=== PATIENT | female | born 1990 | race Caucasian/White ===

== ENCOUNTER 2023-10-01 13:43 | Outpatient (CLI) | payer OTHER, SELFPAY ==
[2023-10-01 11:14] LABS: HCG Quant, Pregnancy 20589 mIU/mL (1-3)
== END 2023-10-01 13:44 | disposition home or self-care (01) ==
LOC: LBO 13:45
PROVIDERS: Visit Provider Advanced Practice Midwife
DX: O20.0 Threatened abortion (principal)
CPT/HCPCS: 36415; 86850; 86900; 86901; 84702

== ENCOUNTER 2023-11-03 05:14 | Outpatient (CLI) | payer OTHER, SELFPAY ==
[2023-11-03 11:30] LABS: Panorama Kit Sent via Fed Ex
[2023-11-03 11:37] LABS: Abs Immature Grans 0.03 10^3/uL (0.0-0.06); Absolute Basophil Count 0.04 10^3/uL (0.0-0.2); Absolute Eosinophil Count 0.07 10^3/uL (0.0-0.7); Absolute Lymphocyte Count 2.02 10^3/uL (1.2-3.4); Absolute Monocyte Count 0.43 10^3/uL (0.1-0.8); Absolute Neutrophil Count 6.26 10^3/uL (1.2-6.7); Basophils % 0.5; Eosinophils % 0.8; HCT 38.7 % (36.0-46.0); HGB 13.3 g/dL (11.2-15.7); Immature Grans % 0.3; Lymphocytes % 22.8; MCH 32.1 pg (27.0-33.0); MCHC 34.4 % (32.0-36.0); MCV 94 fL (80-95); MPV 10.1 fL (8.0-11.0); Monocytes % 4.9; Neutrophils % 70.7; Platelet Count 263 10^3/uL (130-400); RBC 4.14 10^6/uL (3.93-5.22); RDW 11.9 % (11.7-14.6); RDW-SD 40.9 fL; WBC 8.85 10^3/uL (4.4-10.8)
[2023-11-03 11:49] LABS: Glucose,1 Hr (Glucola) 88 mg/dL (80-140)
[2023-11-03 19:06] LABS: Hepatitis B Surface Ag Negative (Negative)
[2023-11-03 19:35] LABS: HIV-1/2 Ag & Ab Screen Negative (Negative)
[2023-11-03 19:36] LABS: Hepatitis C Ab w Rflx HCV PCR Negative (Negative)
[2023-11-04 11:22] LABS: Rubella IgG Ab (UVM) Positive (See Note)
[2023-11-04 12:27] LABS: Varicella IgG Antibody Equivocal (See Note)
[2023-11-05 19:44] LABS: Syphilis IgG w/Reflex Nonreactive (Nonreactive)
[2023-11-07 18:20] LABS: Specimen WB Whole Blood
[2023-11-15 18:02] LABS: Result Summary NEGATIVE; Specimen WB Whole Blood
== END 2023-11-03 05:15 | disposition home or self-care (01) ==
LOC: LBO 05:14
PROVIDERS: Advanced Practice Midwife; Visit Provider Advanced Practice Midwife
DX: Z34.91 Encounter for supervision of normal pregnancy, unspecified, first trimester (principal)
CPT/HCPCS: 36415; 81220; 81222; 81329; 82950; 86787; 86803; 86850; 86900; 86901; 87340; 87389; 85025; 86762; 86780

== ENCOUNTER 2023-11-03 11:01 | Outpatient (REF) | payer OTHER, SELFPAY ==
[2023-11-04 13:38] LABS: Chlamydia Result Negative (Negative); GC Result Negative (Negative)
== END 2023-11-03 11:02 | disposition home or self-care (01) ==
LOC: LBN 11:01
PROVIDERS: Visit Provider Advanced Practice Midwife
DX: Z34.91 Encounter for supervision of normal pregnancy, unspecified, first trimester (principal)
CPT/HCPCS: 87491; 87591; 87086; 87480; 87510; 87660

== ENCOUNTER 2024-03-07 02:59 | Outpatient (CLI) | payer OTHER, SELFPAY ==
[2024-03-07 11:45] LABS: HCT 37.6 % (36.0-46.0); HGB 12.5 g/dL (11.2-15.7); MCH 32.8 pg (27.0-33.0); MCHC 33.2 % (32.0-36.0); MCV 99 fL (80-95); MPV 10.4 fL (8.0-11.0); Platelet Count 275 10^3/uL (130-400); RBC 3.81 10^6/uL (3.93-5.22); RDW-SD 46.6 fL; WBC 10.52 10^3/uL (4.4-10.8)
[2024-03-07 11:58] LABS: Glucose,1 Hr (Glucola) 110 mg/dL (80-140)
== END 2024-03-07 03:00 | disposition home or self-care (01) ==
LOC: LBO 02:59
PROVIDERS: Visit Provider Advanced Practice Midwife
DX: Z34.93 Encounter for supervision of normal pregnancy, unspecified, third trimester (principal)
CPT/HCPCS: 36415; 82950; 85027

== ENCOUNTER 2024-04-06 02:20 | Outpatient (CLI) | payer OTHER, SELFPAY ==
--- NOTE | 2024-04-06 07:11 | DI.US_ITS ---
Exam(s) US OB MING WEIGHT EXAM: US OB MING WEIGHT CLINICAL HISTORY: Advanced maternal age,z34.90. TECHNIQUE: Transabdominal obstetrical ultrasound performed. COMPARISON: US US OB 1ST TRIMESTER from 10/04/2023 US US ABDOMEN RENAL from 01/26/2024 FINDINGS: Number of fetuses: 1 position: CEPHALIC Placental location: There is a grade 2 posterior and fundal placenta. No evidence of previa. Uterus: Note is made of a 3.3 x 2.3 x 3.7 cm anterior uterine fibroid. BIOMETRIC DATA: BPD: 8.6cm, 34weeks 5days HC: 31.33cm, 35weeks 1day AC: 30.8cm, 34weeks 5days FL: 6.44cm, 33weeks 2days EFW: 2,412.85g, 5lb 6.26oz, 85% Composite Age: 34weeks 3days ANGELO: 05/15/2024 Heart Rate: 144bpm Amniotic fluid index: 12.59cm. The largest pocket is 5.6 cm. IMPRESSION: 1. Single live intrauterine gestation as above. 2. Estimated weight is 2413gms. This is the 85th percentile. 3. Amniotic fluid index is 12.6 cm. The largest pocket is 5.6 cm. DATA REPOSITORY:
== END 2024-04-06 02:40 ==
LOC: DI 02:20
PROVIDERS: Visit Provider Advanced Practice Midwife
DX: Z3A.34 34 weeks gestation of pregnancy (principal); O09.513 Supervision of elderly primigravida, third trimester
CPT/HCPCS: 76816

== ENCOUNTER 2024-04-25 11:53 | Outpatient (CLI) | payer OTHER, SELFPAY ==
[2024-04-25 12:13] VITALS: BP 136/67; PULSE 76; TEMP 36.2
[2024-04-25 12:42] VITALS: BP 136/67; PULSE 76
[2024-04-25] MEDS: Normal Saline 10 ML VIAL IJ (13:30)
[2024-04-25] MEDS: Ondansetron 4 MG/2 ML VIAL 8 MG IVP (13:35)
[2024-04-25 14:31] VITALS: BP 138/83; PULSE 78
[2024-04-25 14:41] VITALS: BP 137/75; PULSE 82
--- NOTE | 2024-04-25 16:35 | W.OBNST ---
Date of service: 04/25/24 Time of Service: 16:35 NST Evaluation Reason for NST Reasons for Nonstress Test: DECREASED MOVEMENT and OTHER, SEE COMMENT Reason for NST Other: nausea and vomiting Gestational Age Gestational Age in Weeks and Days: 35 Weeks and 4Days Test and Monitor Explained Test/Monitor Explained: Test Explained, Monitor Explained and Patient Verbalized Understanding Vital Signs Blood Pressure: 136/67 Pulse: 76 Temperature: 97.2 F Urine Results Urine Protein: Negative Urine Ketones: Negative Urine Glucose: Negative Urine Blood: Negative NST Information Date on Monitor: 04/25/24 Time on Monitor: 12:40 Date off Monitor: 04/25/24 Time off Monitor: 13:30 Total Time on Monitor: 50 NST Interventions: PO Hydration and Meal Given Contraction Frequency: 0 NST Evaluation Patient States Movement: Present FHR Baseline: 145 Variability: Moderate 6-25 bpm Accelerations: 15x15 Decelerations: None NST Results: Reactive Note Ultrasound Done: N/A. NST Note Note: given 8 mg zofran IV discharged when tolerating oral intake NST Reviewed and Verified by: Ana Blackburn
[2024-04-25 16:36] VITALS: BP 136/67; PULSE 76; TEMP 36.2
== END 2024-04-25 14:23 ==
LOC: BCD 11:57 → OBS 12:02
PROVIDERS: Visit Provider Advanced Practice Midwife
DX: O36.8130 Decreased fetal movements, third trimester, not applicable or unspecified (principal); Z3A.35 35 weeks gestation of pregnancy
CPT/HCPCS: 59025; 96372; J2405

== ENCOUNTER 2024-04-28 13:23 | Outpatient (REF) | payer OTHER, SELFPAY | END 2024-04-28 13:24 | disposition home or self-care (01) | LOC: LBN 13:23 | PROVIDERS: Visit Provider Advanced Practice Midwife | DX: Z34.93 Encounter for supervision of normal pregnancy, unspecified, third trimester (principal) | CPT/HCPCS: 87081 ==

== ENCOUNTER 2024-05-30 09:48 | Outpatient (CLI) | payer OTHER, SELFPAY ==
[2024-05-30 10:41] VITALS: TEMP 36.6
--- NOTE | 2024-05-30 13:48 | W.OBNST ---
Date of service: 05/30/24 Time of Service: 13:48 NST Evaluation Reason for NST Reasons for Nonstress Test: OTHER, SEE COMMENT Reason for NST Other: well being after fall. Gestational Age Gestational Age in Weeks and Days: 40 Weeks and 4Days Test and Monitor Explained Test/Monitor Explained: Test Explained, Monitor Explained and Patient Verbalized Understanding Vital Signs Blood Pressure: 122/80 Pulse: 78 Temperature: 97.9 F NST Information Date on Monitor: 05/30/24 Time on Monitor: 10:45 Date off Monitor: 05/30/24 Time off Monitor: 11:20 Total Time on Monitor: 35 NST Interventions: PO Hydration NST Evaluation Patient States Movement: Present FHR Baseline: 135 Variability: Moderate 6-25 bpm Decelerations: None NST Results: Reactive NST Evaluation Baby B Ultrasound Done: N/A Note Ultrasound Done: N/A. NST Note Note: Saira fell while walking and landed on her hands and knees. She felt a pop in her right ankle and experienced pain. She is able to walk well with a limp and mod discomfort. The right lateral ankle is swollen and ice is applied. Reactive NST. IOL planned for tomorrow morning. She was advised to continue icing and to go to the ED for evaluation of her ankle. NST Reviewed and Verified by: Yolis Chapman
[2024-05-30 13:52] VITALS: TEMP 36.6
[2024-05-30 14:00] VITALS: BP 122/80; PULSE 78
== END 2024-05-30 11:41 | disposition other institution (70) ==
LOC: BCD 09:53 → OBS 10:40
PROVIDERS: Visit Provider Advanced Practice Midwife
DX: O9A.213 Injury, poisoning and certain other consequences of external causes complicating pregnancy, third trimester (principal); M25.571 Pain in right ankle and joints of right foot; Z36.89 Encounter for other specified antenatal screening; W01.0XXA Fall on same level from slipping, tripping and stumbling without subsequent striking against object, initial encounter
CPT/HCPCS: 59025

== ENCOUNTER 2024-05-30 11:34 | Emergency (ER) | payer OTHER, SELFPAY ==
[2024-05-30 11:40] VITALS: BP 122/80; PULSE 78; RESP 18; TEMP 36.8; O2SAT 99
--- OUTSIDE RECORDS SUMMARY | 2024-05-30 11:44 | XMS_ITS | Encounter Summary ---
Author Organization [facility] Address [facility] [place] [address] Care Team Providers Care Deputy City Clerk Name Role Phone [place] Tl Armendariz Primary Care Provider [phone] Reason for Visit * Consultation (Routine) - Authorized Specialty Diagnoses / Procedures Referred By Dinora luque Referred To Contact Obstetrics and Gynecology Diagnoses Uterine leiomyoma, unspecified location UTERINE FIBROID ADVANCED MATERNAL AGE (AMA) IN Yolis Chapman CNM [address] [place] [address] [place] [address] [facility] [address] [place] [address] Referral ID Status Reason Start Date Expiration Date Visits Requested Visits Authorized [id number] Authorized Consult, Test & Treat PCP Updated and/or Approved 11/04/2023 11/03/2024 6 6 Encounter Details Date Type Department Care Team (Late Contact Info) Description 01/03/2024 9:00 AM EDT Office Visit Obstetrics [place] [id number] Yohannes Davidson MD [facility] DR OBSTETRICS AND GYNECOLOGY [place], [place] [id number] Obesity affecting , antepartum, unspecified obesity type; Primigravida of advanced maternal age in second trimester Social History Tobacco Use Types Packs/Day Years Used Date Smoking Tobacco: Never Smokeless Tobacco: Never Tobacco Cessation:Counseling Given: Not Answered Alcohol Use Standard Drinks/Week Comments Not Currently 0 (1 standard drink = 0.6 oz pur e alcohol) Estimated Date of Delivery Comme nts Yes 05/26/2024 Sex and Gender Information Value Date Recorded Sex Assigned at Not on file Gender Identity Not on file Sexual Orientation Not on file documented as of this encounter Last Filed Vital Signs Vital Sign Reading Time Taken Comments Blood Pressure 124/68 01/03/2024 8:40 AM EDT Pulse - - Temperature - - Respiratory Rate - - Oxygen Saturation - - Inhaled Oxygen Concentration - - Weight 92.6 kg (204 lb 3.2 oz) 01/03/2024 8:40 A M EDT Height - - Body Mass Index - - documented in this encounter Progress Notes * Yohannes Davidson MD - 01/03/2024 9:00 AM EDT Diagnosis/Maternal Medicine Consult Note Saira Mooney is a 33 y.o. year old female who is at 19w3d gestation. She is seen in consultation at the request of Yolis Chapman CNM for evaluation due to advanced maternal age. She previously opted for cell free DNA screening, which revealed a low risk of aneuploidy (<1:10,000 for trisomies 21, 18 and 13). She was returns today for ultrasound evaluation. Review of Systems Constitutional:feels well Movement: normal Contractions: none Leaking: None Bleeding: None now I reviewed the patient's medical, surgical and family history and updated it as appropriate. I alsoreviewed and updated as appropriate her allergies and medications. I reviewed her record and ultrasound reports to date. Ultrasound Date: 01/03/2024 Amniotic fluid volume normal Presentation cephalic Placenta posterior Growth appropriate for gestational age anatomy appears within normal limits. Physical Exam BP 124/68 Wt 92.6 kg (204 lb 3.2 oz) General: alert, well appearing, in no apparent distress, oriented to person, place and time, overweight HEENT: normocephalic, atraumatic Abdomen: Soft, non-tender, gravid Neurologic:alert, oriented, normal speech, no focal findings or movement disorder noted Psychiatric: Affect is Appropriate. Assessment and Recommendations: 33 y.o. year old female at 19w3d weeks gestation, referred for survey due to advance maternal age. Low risk NIPT and normal appearing survey. The patient declined further testing. After a normal ultrasound evaluation, obese women without diabetes may still have up to a 1% risk of amajor anomaly, including some anomalies not detectable by ultrasound. I appreciate the opportunity to be involved in this patients care, and am available if further questions should arise. Yohannes DAVIDSON MD 01/03/2024 Cc: Yolis Chapman, [id number] [place] [address] , with copy of ultrasound report 30 minutes were spent on date of visit, including non-face to face time. documented in this encounter Plan of Treatment Scheduled Referrals Name Type Priority Associated Diagnoses Orde r Schedule Referral to Maternal Medicine Outpatient Referral Routine Uterine leiomyoma, unspecified location Ordered: 11/04/2023 documented as of this encounter Visit Diagnoses Diagnosis Obesity affecting , antepartum, unspecified obesity type Primigravida of advanced maternal age in second trimester documented in this encounter Care Teams Deputy City Clerk Relationship Specialty Start Date End Date Tl Campo DO PCP - General 06/03/10 documented as of this encounter
--- OUTSIDE RECORDS SUMMARY | 2024-05-30 11:44 | XMS_ITS | Encounter Summary ---
[place] [address] Care Team Providers Care Glycerin Supervisor Name Role Phone [place] Tl Armendariz Primary Care Provider [phone] Reason for Referral * Consultation (Routine) - Authorized Specialty Diagnoses / Procedures Referred By Dinora luque Referred To Contact Obstetrics and Gynecology Diagnoses Uterine leiomyoma, unspecified location UTERINE FIBROID ADVANCED MATERNAL AGE (AMA) IN [facility] [address] [place] [address] [facility] Application Performance Engineer [address], [place] [address] Referral ID Status Reason Start Date Expiration Date Visits Requested Visits Authorized [id number] Authorized Consult, Test & Treat PCP Updated and/or Approved 11/04/2023 11/03/2024 6 6 Encounter Details Date Type Department Care Team (Late st Contact Info) Description 11/04/2023 Transcribe Orders eDH Incoming Referrals [phone] Yolis Chapman CNM [address] [place] [address] [address] [place] [place], [place] [id number] Uterine leiomyoma, unspecified location Social History Tobacco Use Types Packs/Day Years Used Date Smoking Tobacco: Never Assessed Sex and Gender Information Value Date Recorded Sex Assigned at Not on file Gender Identity Not on file Sexual Orientation Not on file documented as of this encounter Plan of Treatment Scheduled Referrals Name Type Priority Associated Diagnoses Orde r Schedule Referral to Maternal Medicine Outpatient Referral Routine Uterine leiomyoma, unspecified location Ordered: 11/04/2023 documented as of this encounter Visit Diagnoses Diagnosis Uterine leiomyoma, unspecified location documented in this encounter Care Teams Glycerin Supervisor Relationship Specialty Start Date End Date Tl Campo DO PCP - General 06/03/10 documented as of this encounter
--- OUTSIDE RECORDS SUMMARY | 2024-05-30 11:44 | XMS_ITS | Encounter Summary ---
[place] [address] Care Team Providers Care Plug Grower Name Role Phone lT Campo DO Primary Care Provider [phone] Encounter Details Date Type Department Care Team (Latest Contact Info) Description 01/03/2024 Travel Social History Tobacco Use Types Packs/Day Years Used Date Smoking Tobacco: Never Smokeless Tobacco: Never Alcohol Use Standard Drinks/Week Comments Not Currently 0 (1 standard drink = 0.6 oz pur e alcohol) Estimated Date of Delivery Comme nts Yes 05/26/2024 Sex and Gender Information Value Date Recorded Sex Assigned at Not on file Gender Identity Not on file Sexual Orientation Not on file documented as of this encounter Plan of Treatment Not on file documented as of this encounter Visit Diagnoses Not on filedocumented in this encounter Care Teams Plug Grower Relationship Specialty Start Date End Date Tl Campo DO PCP - General 06/03/10 documented as of this encounter
--- OUTSIDE RECORDS SUMMARY | 2024-05-30 11:44 | XMS_ITS | Clinical Summary ---
Author Organization [facility] [place] [address] Care Team Providers Care Applied Psychology Professor Name Role Phone Tl Campo DO Primary Care Provider [phone] Active Problems Problem Noted Date Diagnosed Date Obesity affecting , antepartum 01/03/20 Primigravida of advanced maternal age in second trimester 01/03/2024 Estimated Date of Delivery Comme nts Yes 05/26/2024 Social History Tobacco Use Types Packs/Day Years [...] on file Sexual Orientation Not on file Last Filed Vital Signs Vital Sign Reading Time Taken Comments Blood Pressure 124/68 01/03/2024 8:40 AM EDT Pulse - - Temperature - - Respiratory Rate - - Oxygen Saturation - - Inhaled Oxygen Concentration - - Weight 92.6 kg (204 lb 3.2 oz) 01/03/2024 8:40 A M EDT Height - - Body Mass Index - - Plan of Treatment Health Maintenance Due Date Last Done Comments HIV screen 2006 Hepatitis C Screening 2006 Hepatitis B vaccine (0-59 yrs) (1) 2007 Tetanus/Diphtheria/Pertussis Vaccines (1 - Tdap) 07/22 HPV test 2018 PAP Smear 2018 Covid-19 Vaccine (1 - 2023-25 season) 2024 Influenza (Flu) vaccine (1 o f 1 - Influenza standard series) 03/12/2024 RSV Vaccine (No Doses Required) Completed Care Teams Applied Psychology Professor Relationship Specialty Start Date End Date Tl Campo DO PCP - General 06/03/10
--- OUTSIDE RECORDS SUMMARY | 2024-05-30 11:44 | XMS_ITS | Encounter Summary ---
Author Organization [facility] [place] [address] Care Team Providers Care Mobile Ui Designer Name Role Phone Alber Tl Marcello PRIETO Primary Care Provider [phone] Reason for Referral * Diagnostic Test (Routine) - Closed Specialty Diagnoses / Procedures Referred By Contac t Referred To Contact Radiology Diagnoses Elderly primigravida, delivered Procedures US OB Detailed Morphology Ernesto Chapman CNM [address] [place] [address] [address] [place] [address] [facility] [place] [address] Referral ID Status Reason Start Date Expiration Date V isits Requested Visits Authorized [id number] Closed Specialty Service Requested 11/04/2023 05/05/2025 1 1 Reason for Visit * Diagnostic Test (Routine) - Closed Specialty Diagnoses / Procedures Referred By Contac t Referred To Contact Radiology Diagnoses Elderly primigravida, delivered Procedures US OB Detailed Morphology Ernesto Chapman CNM [address] [place] [address] [address] [place] [address] [facility] [place] [address] Referral ID Status Reason Start Date Expiration Date V isits Requested Visits Authorized [id number] Closed Specialty Service Requested 11/04/2023 05/05/2025 1 1 Encounter Details Date Type Department Care Team (Latest Contact Info) Description 01/03/2024 7:44 AM EDT - 01/03/2024 11:59 PM EDT Hospital [place] [address] Ernesto Chapman CNM [address] [place] [address] [address] [place] [address] Elderly primigravida, delivered Discharge Disposition: Home Social History Tobacco Use Types Packs/Day Years [...] on file documented as of this encounter Procedures Procedure Name Priority Date/Time Associated Diagnosis Comments US OB DETAILED MORPHOLOGY Routine 01/03/2024 8:34 AM EDT Elderly primigravida, delivered documented in this encounter Results * US OB Detailed Morphology (01/03/2024 8:34 AM EDT) WORKSTATION ID [id number] [facility] Anatomical Region Laterality Modality Pelvis, Abdomen Ultrasound 01/03/2024 8:32 AM EDT Impressions 01/03/2024 8:44 AM EDT 2nd Trimester - Detailed Morphology - Summary Single intrauterine with a gestational age of 19w 3d based on LMP ??(08/20/23) Composite age based on the current ultrasound alone is 19w 6d. Current growth parameters are consistent with prior dating indicating normal growth. Amniotic fluid volume is subjectively normal. Detailed anatomic evaluation was performed and no structural abnormalities are noted. Thank you for letting us participate in the care of this patient. If you are a health care provider and have any questions regarding this report, please contact the number above. For patients who have questions, please contact the health rn transitional care that requested your imaging first. ? Susannah Davidson, Staff Physician Electronically Signed Final Report ?? 01/03/2024 08:44 am Narrative 01/03/2024 8:44 AM EDT OBSTETRICS REPORT ?(Signed Final 01/03/2024 08:44 am) PATIENT INFO: ID #: ? [id number] ?: ??[birth year] (33 yrs)(F) Name: ? SAIRA CANALES ? Visit Date: 01/03/2024 08:32 am PERFORMED BY: Performed By: ? Alfredo AHMADI, ??Willow Attending: ?Susannah Davidson MD Referred By: ?ERNESTO CHAPMAN Location: ? [place] SERVICE(S) PROVIDED: [facility] - Detailed Morphology - [id number] ? [id number] INDICATIONS: 19 weeks gestation of ?Z3A.19 maternal age VITAL SIGNS: Weight (lb): 210.0 Height: ?5'7 ? BMI: ? 32.89 EVALUATION: Num Of Fetuses: ? 1 Heart Rate(bpm): ??141 Cardiac Activity: ? Observed, normal rhythm Presentation: ? Cephalic Placenta: ? Posterior P. Cord Insertion: ?Within Normal Limits Amniotic Fluid MING FV: ?subjectively normal --------- BIOMETRY: --------- BPD: ?47.2 ??mm ? G.Age: ?? 20w 2d OFD: ?60.7 ??mm HC: ?170.8 ??mm ? G.Age: ?? 19w 5d AC: ?145.5 ??mm ? G.Age: ?? 19w 6d FL: ? 30.7 ??mm ? G.Age: ?? 19w 4d HUM: ?30.5 ??mm ? G.Age: ?? 20w 1d CER: ?19.9 ??mm ? G.Age: ?? 19w 0d NFT: ?3.16 ??mm LV: ?5.3 ??mm CM: ?3.4 ??mm CI: ?77.8 ??% ? 70 - 86 FL/HC: ? 18.0 ??% ? 16.1 - 18.3 HC/AC: ? 1.17 ?1.09 - 1.39 FL/BPD: ?65.0 ??% FL/AC: ? 21.1 ??% ? 20 - 24 Est. FW: ? 309 ??gm ?0 lb 11 oz OB HISTORY: : ?1 ? Term: ?? 0 GESTATIONAL AGE: LMP: ? 19w 3d ?Date: ??08/20/23 ? ANGELO: ?? 05/26/24 U/S Today: ? 19w 6d ?ANGELO: ?? 05/23/24 Best: ?19w 3d ?? Det. By: ??LMP ??(08/20/23) ?ANGELO: ?? 05/26/24 TARGETED ANATOMY: Central Nervous System Calvarium/Cranial V.: ??Within Normal Limits Intracranial Yuliana: ? Within Normal Limits Cavum: ? Within Normal Limits Parenchyma: ?Within Normal Limits Lateral Ventricles: ?Within Normal Limits Choroid Plexus: ?Within Normal Limits Cereb./Vermis: ? Within Normal Limits Cisterna Magna: ?Within Normal Limits Midline Falx: ?Within Normal Limits Spine Cervical: ?Visualized Thoracic: ?Visualized Lumbar: ?Visualized Sacral: ?Visualized Shape/Curvature: ? Visualized Head/Neck Face: ?Within Normal Limits Lips: ?Within Normal Limits Neck: ?Within Normal Limits Nuchal Fold: ? Within Normal Limits Nasal Bone: ?Present Profile: ? Visualized Orbits/Eyes: ? Visualized Mandible: ?Visualized Maxilla: ? Visualized Thorax Thoracic Contour: ?Within Normal Limits Lungs: ? Visualized 4 Chamber View: ?Within Normal Limits Cardiac Activity: ?Normal Rhythm Rt Outflow Tract: ?Visualized Lt Outflow Tract: ?Visualized Aortic Arch: ? Visualized Ductal Arch: ? Visualized SVC: ? Visualized Cardiac [place]: ?Visualized Diaphragm: ? Visualized 3 Vessel View: ? Visualized IVC: ? Visualized Abdomen Ventral Wall: ?Visualized Cord Insertion: ?Visualized Situs: ? Normal Stomach: ? Visualized Liver: ? Visualized Lt Kidney: ? Visualized Rt Kidney: ? Visualized Bladder: ? Visualized Bowel: ? Visualized Extremities Lt Humerus: ?Within Nomal Limits Rt Humerus: ?Within Normal Limits Lt Forearm: ?Within Normal Limits Rt Forearm: ?Within Normal Limits Lt Hand: ? Within Normal Limits Rt Hand: ? Within Normal Limits Lt Femur: ?Within Normal Limits Rt Femur: ?Within Normal Limits Lt Lower Leg: ?Within Normal Limits Rt Lower Leg: ?Within Normal Limits Lt Foot: ? Visualized Rt Foot: ? Visualized Other Umbilical Cord: ?3 vessel cord Genitalia: ? Normal CERVIX UTERUS ADNEXA: Right Ovary Size(cm) ? 3.0 ??x ?? 1.9 ?x ??0.9 ? Vol(ml): 2.7 Visualized Left Ovary Size(cm) ? 4.3 ??x ?? 2.2 ?x ??1.9 ? Vol(ml): 9.4 Visualized ------- MYOMAS: ------- Site ? L(cm) ? W(cm) ? D(cm) ? Location Anterior Left ?3.1 ? 3.3 ? 2.9 ? Subserosal Lateral Blood Flow ?RI ? PI ? Comments Procedure Note Ranjana Davidson MD - 01/03/2024 OBSTETRICS REPORT (Signed Final 01/03/2024 08:44 am) PATIENT INFO: ID #: [id number] : [birth year] (33 yrs)(F) Name: SAIRA CANALES Visit Date: 01/03/2024 08:32 am PERFORMED BY: Performed By: Willow Fuentes RDMS Attending: Susannah Davidson MD Referred By: ERNESTO CHAPMAN Location: [place] SERVICE(S) PROVIDED: [facility] - Detailed Morphology - [id number] INDICATIONS: 19 weeks gestation of Z3A.19 maternal age VITAL SIGNS: Weight (lb): 210.0 Height: 5'7 BMI: 32.89 EVALUATION: Num Of Fetuses: 1 Heart Rate(bpm): 141 Cardiac Activity: Observed, normal rhythm Presentation: Cephalic Placenta: Posterior P. Cord Insertion: Within Normal Limits Amniotic Fluid MING FV: subjectively normal --------- BIOMETRY: --------- BPD: 47.2 mm G.Age: 20w 2d OFD: 60.7 mm HC: 170.8 mm G.Age: 19w 5d AC: 145.5 mm G.Age: 19w 6d FL: 30.7 mm G.Age: 19w 4d HUM: 30.5 mm G.Age: 20w 1d CER: 19.9 mm G.Age: 19w 0d NFT: 3.16 mm LV: 5.3 mm CM: 3.4 mm CI: 77.8 % 70 - 86 FL/HC: 18.0 % 16.1 - 18.3 HC/AC: 1.17 1.09 - 1.39 FL/BPD: 65.0 % FL/AC: 21.1 % - 24 Est. FW: 309 gm 0 lb 11 oz OB HISTORY: : 1 Term: 0 GESTATIONAL AGE: LMP: 19w 3d Date: 08/20/23 ANGELO: 05/26/24 U/S Today: 6d ANGELO: 05/23/24 Best: w 3d Det. By: LMP (08/20/23) ANGELO: 05/26/24 TARGETED ANATOMY: Central Nervous System Calvarium/Cranial V.: Within Normal Limits Intracranial Yuliana: Within Normal Limits Cavum: Within Normal Limits Parenchyma: Within Normal Limits Lateral Ventricles: Within Normal Limits Choroid Plexus: Within Normal Limits Cereb./Vermis: Within Normal Limits Cisterna Magna: Within Normal Limits Midline Falx: Within Normal Limits Spine Cervical: Visualized Thoracic: Visualized Lumbar: Visualized Sacral: Visualized Shape/Curvature: Visualized Head/Neck Face: Within Normal Limits Lips: Within Normal Limits Neck: Within Normal Limits Nuchal Fold: Within Normal Limits Nasal Bone: Present Profile: Visualized Orbits/Eyes: Visualized Mandible: Visualized Maxilla: Visualized Thorax Thoracic Contour: Within Normal Limits Lungs: Visualized 4 Chamber View: Within Normal Limits Cardiac Activity: Normal Rhythm Rt Outflow Tract: Visualized Lt Outflow Tract: Visualized Aortic Arch: Visualized Ductal Arch: Visualized SVC: Visualized Cardiac [place]: Visualized Diaphragm: Visualized 3 Vessel View: Visualized IVC: Visualized Abdomen Ventral Wall: Visualized Cord Insertion: Visualized Situs: Normal Stomach: Visualized Liver: Visualized Lt Kidney: Visualized Rt Kidney: Visualized Bladder: Visualized Bowel: Visualized Extremities Lt Humerus: Within Nomal Limits Rt Humerus: Within Normal Limits Lt Forearm: Within Normal Limits Rt Forearm: Within Normal Limits Lt Hand: Within Normal Limits Rt Hand: Within Normal Limits Lt Femur: Within Normal Limits Rt Femur: Within Normal Limits Lt Lower Leg: Within Normal Limits Rt Lower Leg: Within Normal Limits Lt Foot: Visualized Rt Foot: Visualized Other Umbilical Cord: 3 vessel cord Genitalia: Normal CERVIX UTERUS ADNEXA: Right Ovary Size(cm) 3.0 x 1.9 x 0.9 Vol(ml): 2.7 Visualized Left Ovary Size(cm) 4.3 x 2.2 x 1.9 Vol(ml): 9.4 Visualized ------- MYOMAS: ------- Site L(cm) W(cm) D(cm) Location Anterior Left 3.1 3.3 2.9 Subserosal Lateral Blood Flow RI PI Comments IMPRESSION 2nd Trimester - Detailed Morphology - Summary Single intrauterine with a gestational age of 19w 3d based on LMP (08/20/23) Composite age based on the current ultrasound alone is 19w 6d. Current growth parameters are consistent with prior dating indicating normal growth. Amniotic fluid volume is subjectively normal. Detailed anatomic evaluation was performed and no structural abnormalities are noted. Thank you for letting us participate in the care of this patient. If you are a health care provider and have any questions regarding this report, please contact the number above. For patients who have questions, please contact the health rn transitional care that requested your imaging first. Susannah Davidson, Staff Physician Electronically Signed Final Report 01/03/2024 08:44 am Ernesto Chapmna CNM IMG US OB ORDERABLE S documented in this encounter Visit Diagnoses Diagnosis Elderly primigravida, delivered documented in this encounter Care Teams Mobile Ui Designer Relationship Specialty Start Date End Date Tl Campo DO PCP - General 06/03/10 documented as of this encounter
--- NOTE | 2024-05-30 12:13 | W.ED.GENAD ---
Discharge Plan Disposition Patient Disposition: Home Discharge Details Clinical Impression: Moderate right ankle sprain Primary Care Provider: Unknown,Unknown ED Provider: Wilmar Zhou Home Meds and New Rx's Prescriptions: Continued Unisom (doxylamine) 25 mg tablet 25 mg PO QHS PRN aspirin 81 mg tablet,delayed release (DR/EC) 81 mg PO DAILY pantoprazole [Protonix] 40 mg tablet,delayed release (DR/EC) 40 mg PO DAILY Qty: 30 4RF Classic 28 mg iron- 800 mcg tablet 1 tab PO DAILY docusate sodium [Colace] 100 mg capsule 100 mg PO BID PRN (Reason: constipation) Qty: 90 1RF Discharge Instructions Additional Instructions: You are seen in the emergency department for your ankle pain. Your x-ray showed no sign of any fracture. You are receiving a lace up brace which you should wear as needed for comfort. You may bear weight on your right lower extremity. Please elevate your right lower extremity today and ice for 20 minutes on 20 minutes off. Please return to the emergency department if you cannot feel your right foot or if you develop any vaginal bleeding. For your pain please take medications as follows: 1. Take acetaminophen (Tylenol), 1,000 mg (two 500 mg tabs) every 6 hours Discharge Data Discharge Date/Time-TO BE ENTERED AT DEPARTURE: 05/30/24 13:17 HPI General Date/Time Provider Initiated Documentation: 05/30/24 12:13. HPI Narrative: MDM This is an overall very well-appearing normothermic and not tachycardic 33-year-old female with right ankle swelling on x-ray negative for any fractures most consistent with left ankle sprain. No pain out of proportion to suggest necrotizing soft tissue infection. No proximal tibial tenderness to suggest Maisonneuve injury. No midfoot instability to suggest Lisfranc injury. No lateral foot tenderness to suggest Robles fracture. Foot warm well-perfused so I am not concerned for critical limb ischemia so I do not feel the patient requires a CT angiogram with runoff. No history of axial loading to suggest talar fracture. No significant erythema nor fevers to suggest septic joint. No signs of cellulitis or fluctuance to suggest abscess. Patient has been assessed and discharged by the obstetricians. She denies any vaginal bleeding so am I not suspicious for labor as patient is not having any abdominal contractions. We discussed that she should elevate her right ankle today and ice for 20 minutes on 20 minutes off. I also counseled her on acetaminophen dosing. We discussed that she should return to the emergency department if you develop worsening pain or swelling or could not feel her right foot. She was discharged with an empiric trial of expectant outpatient management. HPI This is a 29-year-old female arrived to the emergency department via private vehicle in setting of right ankle pain. Patient is 9 months and her due date was several days ago. She notes that she was walking this morning at approximately 8:30 AM when she twisted her right ankle. She fell but did not strike her head. She did not lose consciousness. She has not had vaginal bleeding and she has been seen by the obstetricians today who advised ED evaluation for her right ankle pain and swelling. She has had no surgical history to her right ankle. She was in her usual state of health earlier this morning. Exam General: Well-appearing in no acute distress speaking in complete sentences. Head: Normocephalic, atraumatic. Eye: Extraocular eye movements intact. No conjunctival injection. No scleral icterus. Ear, nose, mouth, throat: Grossly normal inspection. Normal voice, handling secretions normally. Neck: Trachea midline. Cardiovascular: Well-perfused distal extremities. Respiratory: Nonlabored respiration. Gastrointestinal: Nondistended abdomen. Gravid uterus. Musculoskeletal: Right lateral malleolus with marked swelling tenderness. No lacerations to right lower extremity. No ecchymoses. Right foot warm well-perfused with 2+ right DP and PT pulses. Cap refill less than 2 seconds in the right toes. 4-5 right foot strength dorsi and plantarflexion limited secondarily by pain. No midfoot instability. No right lateral foot tenderness. No right foot instability. No right talar tenderness. No proximal right tibial pain. No knee pain. Full range of motion right knee. Skin: Normal for age and race, grossly normal temperature and turgor. No acute rash. Neurologic: Alert and appropriate, no apparent acute deficits. GCS 15. Psychiatric: Mood and manner are appropriate. Grooming and personal hygiene are appropriate. Related Data Home Medications ?Medication ?Instructions ?Recorded ?Confirmed vits no.126-ferrous fum 1 tab PO DAILY 09/21/23 05/31/24 28 mg iron-folic acid 800 mcg tablet (Classic ) aspirin 81 mg tablet,delayed 81 mg PO DAILY 11/03/23 05/31/24 release doxylamine succinate 25 mg tablet 25 mg PO QHS PRN 11/03/23 05/31/24 (Unisom (doxylamine)) docusate sodium 100 mg capsule 100 mg PO BID PRN constipation #90 01/06/24 05/31/24 (Colace) caps pantoprazole 40 mg tablet,delayed 40 mg PO DAILY #30 tabs 01/11/24 05/31/24 release (Protonix) Previous Rx's ?Medication ?Instructions ?Recorded docusate sodium 100 mg capsule 100 mg PO BID PRN constipation #90 01/06/24 (Colace) caps pantoprazole 40 mg tablet,delayed 40 mg PO DAILY #30 tabs 01/11/24 release (Protonix) Allergies Allergy/AdvReac Type Severity Reaction Status Date / Time No Known Allergies Allergy Verified 05/25/24 13:31 General Stated Complaint: Orthopedic TAMIKO: 4 Course Vital Signs Vital signs: Vital Signs Temperature 36.8 C 05/30/24 11:40 Pulse 78 05/30/24 11:40 Respiratory Rate 18 05/30/24 11:40 Blood Pressure 122/80 05/30/24 11:40 Pulse Oximetry 99 05/30/24 11:40 Temperature 36.8 C 05/30/24 11:40 Temperature Source Temporal Artery Scan 05/30/24 11:40 Pulse 78 05/30/24 11:40 Respiratory Rate 18 05/30/24 11:40 Respiratory Effort Normal, Non-Labored 05/30/24 11:42 Blood Pressure 122/80 05/30/24 11:40 Blood Pressure Position Sitting 05/30/24 11:40 Pulse Oximetry 99 05/30/24 11:40 Oxygen Delivery Method Room Air 05/30/24 11:40 Oxygen Flow Rate 0 05/30/24 11:40 Pain Level 4 05/30/24 11:40 Medical Decision Making Quality:SDOH Health Related Social Needs: No Data to Display PFSH All Active Problems (Updated 05/30/24 @ 12:39 by Wilmar Zhou MD) Moderate right ankle sprain (Acute) COVID-19 affecting in second trimester (Acute) Hydronephrosis, right (Acute) Gallbladder calculus without cholecystitis and no obstruction (Acute) Right upper quadrant abdominal pain affecting (Acute) Maternal varicella, non-immune (Acute) Uterine fibroid (Acute) 3cm fibroid at fundus/right noted at 6 week US in 2023 Advanced maternal age (AMA) in (Acute) (Acute) Medical History (Updated 05/30/24 @ 12:39 by Wilmar Zhou MD) Congenital spondylolisthesis of lumbar region Nausea and vomiting during Miscarriage, threatened, early Missed menses Surgical History (Updated 11/03/23 @ 09:52 by Yolis Chapman CNM) [place] teeth extracted Family History (Updated 03/07/24 @ 10:58 by Yolis Chapman CNM) Father Hyperlipidemia Maternal Grandmother Alzheimer's dementia Gallbladder disease Maternal Aunt Breast cancer Maternal Grandfather Lung cancer Paternal Grandmother Lung cancer Gallbladder disease Maternal Aunt Alzheimer's dementia Social History Smoking/Tobacco Use Status: Never Smoking risk assessment performed?: Yes Alcohol Intake: never Substance use type: does not use Housing: apartment Do you feel safe at home: Yes Do you feel safe in your relationship?: Yes History History 1 Para 0 Hx # Term Pregnancies 0 Multiple births 0 Hx # Pregnancies 0 Ectopic pregnancies 0 AB induced 0 Hx Number of Living Children 0 AB spontaneous 0
--- NOTE | 2024-05-30 12:25 | DI.RAD_ITS ---
Exam(s) XR ANKLE RT COMPLETE EXAM: XR ANKLE RT COMPLETE CLINICAL HISTORY: ankle injury. TECHNIQUE: 2D digital imaging was performed. COMPARISON: No exams were available for comparison FINDINGS: 3 views There is prominent soft tissue swelling of the lateral aspect of the ankle but no evidence of acute f racture or widening the ankle mortise. Talar dome unremarkable. Malleoli unremarkable. Bone densit y normal. No osseous lesions. No osseous tarsal coalition. Visualized base of the 5th metatarsal a ppears intact. IMPRESSION: Lateral soft tissue swelling but no acute fractures evident. DATA REPOSITORY: RADIATION DOSE DELIVERED:
[2024-05-30] MEDS: Acetaminophen 500 MG TAB 1000 MG PO (13:13)
[2024-05-30 13:16] VITALS: BP 120/82; PULSE 78; RESP 18; TEMP 36.8; O2SAT 99
== END 2024-05-30 13:17 | disposition home or self-care (01) ==
PROVIDERS: Emergency Provider Emergency Medicine
DX: O26.893 Other specified pregnancy related conditions, third trimester (principal); S93.401A Sprain of unspecified ligament of right ankle, initial encounter; Z3A.36 36 weeks gestation of pregnancy; X50.1XXA Overexertion from prolonged static or awkward postures, initial encounter; Y93.01 Activity, walking, marching and hiking; Y92.89 Other specified places as the place of occurrence of the external cause
CPT/HCPCS: 99283; 73610

== ENCOUNTER 2024-05-31 10:11 | Inpatient (IN) | payer OTHER, SELFPAY ==
[2024-05-31] VITALS (10 sets, daily range): BP systolic 118–135; BP diastolic 60–88; PULSE 67–84; RESP 18–20; TEMP 36.5–36.7; O2SAT 97
[2024-05-31] MEDS: miSOPROStol 25 MCG TAB 50 MCG PO (11:00)
[2024-05-31 11:25] LABS: HGB 12.5 g/dL (11.2-15.7); MCH 33.2 pg (27.0-33.0); MCHC 33.8 % (32.0-36.0); MCV 98 fL (80-95); Platelet Count 223 10^3/uL (130-400); RBC 3.77 10^6/uL (3.93-5.22); WBC 10.59 10^3/uL (4.4-10.8)
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
--- NOTE | 2024-05-31 17:37 | W.PM.OBNL1 ---
Date of service: 05/31/24 Time of Service: 17:37 Informed Consent Informed Consent: Induction of Labor (risks and benefits of induction of labor including risk of ) Pelvic Exam Dilation: 0.5 Effacement (%): 25 station: -1 Cervix Position: posterior Consistency: soft Vaginal Exam Presentation: Cephalic Contractions Monitor Mode: External Contraction Frequency(min): every 3-5 Contraction Duration(sec): 50-60 Intensity: Mild/Moderate Fetus A Monitor: External (US) Heart Rate Baseline: 140 Presentation: Cephalic Variability: Moderate (6-25 BPM) Categories: Category I FHR Rhythm: Regular Accelerations: 15 X 15 Decelerations: None Assessment and Plan Assessment and plan (1) Encounter for induction of labor: Status: Acute Assessment and plan: I suggested cervical ripening balloon and Saira and her agree. That was inserted. Will continue to monitor contraction pattern and consider resuming misoprostol if contractions are spacing out. Objective Abnormal lab results 05/31/24 Range/Units 11:15 RBC 3.77 L (3.93-5.22) 10^6/uL MCV 98 H (80-95) fL MCH 33.2 H (27.0-33.0) pg Temp Pulse Resp BP Pulse Ox 97.7 F 67 20 135/60 97 05/31/24 17:33 05/31/24 17:33 05/31/24 17:33 05/31/24 17:33 05/31/24 10:46 Laboratory Results WBC 10.59 10^3/uL (4.4-10.8) 05/31/24 11:15 RBC 3.77 10^6/uL (3.93-5.22) L 05/31/24 11:15 Hgb 12.5 g/dL (11.2-15.7) 05/31/24 11:15 Hct 37.0 % (36.0-46.0) 05/31/24 11:15 MCV 98 fL (80-95) H 05/31/24 11:15 MCH 33.2 pg (27.0-33.0) H 05/31/24 11:15 MCHC 33.8 % (32.0-36.0) 05/31/24 11:15 RDW 13.0 % (11.7-14.6) 05/31/24 11:15 Plt Count 223 10^3/uL (130-400) 05/31/24 11:15 MPV 11.0 fL (8.0-11.0) 05/31/24 11:15 ABO/Rh O Positive 05/31/24 11:15 Antibody Screen NEGATIVE 05/31/24 11:15 Vital Signs Reviewed: Yes Subjective Patient Reports: No new Complaints Interval history since last seen: Saira is noticing painless tightening. Increased uterine irritability after misoprostol dose. Results Hemoglobin/Hematocrit: Hgb 12.5 g/dL (11.2-15.7) 05/31/24 11:15 Hct 37.0 % (36.0-46.0) 05/31/24 11:15 Abnormal Lab Findings: Abnormal Labs 05/31/24 11:15 RBC 3.77 L MCV 98 H MCH 33.2 H
[2024-05-31] MEDS: miSOPROStol 25 MCG TAB PO (21:58)
[2024-06-01] VITALS (80 sets, daily range): BP systolic 102–131; BP diastolic 55–84; PULSE 63–107; RESP 16–18; TEMP 36.8–37.4; O2SAT 94–100; BMI 35.0
[2024-06-01] MEDS: Zolpidem 5 MG TAB 10 MG PO (00:05)
[2024-06-01] MEDS: miSOPROStol 25 MCG TAB PO (04:29)
--- NOTE | 2024-06-01 09:35 | ANES.PREOP_ITS ---
General Info Date of Service Date Performed: 06/01/24 Height: 5 ft 6 in Weight: 98.43 kg Body Mass Index (BMI): 35.0 Meds Allergies and Home Medications Allergies Allergy/AdvReac Type Severity Reaction Status Date / Time No Known Allergies Allergy Verified 05/25/24 13:31 Home Medication ?Medication ?Instructions ?Recorded vits no.126-ferrous fum 1 tab PO DAILY 09/21/23 28 mg iron-folic acid 800 mcg tablet (Classic ) aspirin 81 mg tablet,delayed 81 mg PO DAILY 11/03/23 release doxylamine succinate 25 mg tablet 25 mg PO QHS PRN 11/03/23 (Unisom (doxylamine)) docusate sodium 100 mg capsule 100 mg PO BID PRN constipation #90 01/06/24 (Colace) caps pantoprazole 40 mg tablet,delayed 40 mg PO DAILY #30 tabs 01/11/24 release (Protonix) Current Visit Medications: Current Medications Generic Name Dose Route Start Last Admin Trade Name Freq PRN Reason Stop Dose Admin Ringer's Solution 1,000 mls @ 200 mls/hr 05/31/24 10:15 IV INFUSION JESUS MANUEL IV Miscellaneous Supplies 1 each 05/31/24 10:15 Iv Access IV DIRECTED JESUS MANUEL Misoprostol 25 mcg 05/31/24 22:00 06/01/24 04:29 Misoprostol 25 Mcg Tab PO 25 mcg Q4H JESUS MANUEL Administration Sodium Chloride 0 ml 05/31/24 10:11 Normal Saline Flush 10 Ml Syr IVP PRN PRN Sodium Chloride 0 ml 05/31/24 20:00 Normal Saline Flush 10 Ml Syr IVP BID JESUS MANUEL Sodium Chloride 0 ml 05/31/24 10:11 Normal Saline 10 Ml Vial IJ DIRECTED PRN Terbutaline Sulfate 0.25 mg 05/31/24 10:11 Terbutaline 1 Mg/Ml Vial SC PRN PRN PFSH Active Problems Active Problems: Problem Status Onset Code Encounter for induction of labor Acute Z34.90 Moderate right ankle sprain Acute S93.401A COVID-19 affecting in second trimester Acute O98.512, U07.1 Hydronephrosis, right Acute N13.30 Gallbladder calculus without cholecystitis and no obstruction Acute K80.20 Right upper quadrant abdominal pain affecting Acute O26.899, R10.11 Maternal varicella, non-immune Acute O09.899, Z28.39 Uterine fibroid Acute D25.9 Advanced maternal age (AMA) in Acute Acute Z34.90 Medical History Medical History (Updated 05/31/24 @ 11:49 by Yolis Chapman CNM) Congenital spondylolisthesis of lumbar region Nausea and vomiting during Miscarriage, threatened, early Missed menses Surgical History Surgical History (Updated 11/03/23 @ 09:52 by Yolis Chapman CNM) [place] teeth extracted Tobacco Smoking/Tobacco Use Status: Never Alcohol Alcohol Intake: never Substance Use Substance use type: does not use Prental History History 2 1 Para 0 Hx # Term Pregnancies 0 Multiple births 0 Hx # Pregnancies 0 Ectopic pregnancies 0 AB induced 0 Hx Number of Living Children 0 AB spontaneous 0 Vital Signs and Lab Results Vital Signs Most Recent Vital Signs in EMR: Most Recent Vital Signs Temp Pulse Resp BP Pulse Ox 37.1 C 82 18 128/58 L 97 06/01/24 09:10 06/01/24 09:10 06/01/24 09:10 06/01/24 09:10 06/01/24 09:10 Lab Results 05/31/24 11:15 Blood Type / Crossmatch: 2 Antibody Screen NEGATIVE 05/31/24 Complete Blood Count: 2 White Blood Count 10.59 10^3/uL (4.4-10.8) 05/31/24 11:15 Red Blood Count 3.77 10^6/uL (3.93-5.22) L 05/31/24 11:15 Hemoglobin 12.5 g/dL (11.2-15.7) 05/31/24 11:15 Hematocrit 37.0 % (36.0-46.0) 05/31/24 11:15 Platelet Count 223 10^3/uL (130-400) 05/31/24 11:15 Complete Metabolic Panel: 2 No Data to Display Liver Function Panel: 2 No Data to Display Coagulation Panel: 2 No Data to Display Cardiac Panel: 2 No Data to Display Arterial Blood Gas: 2 No Data to Display Venous Blood Gas: 2 No Data to Display Pancreas Panel: 2 No Data to Display Thyroid Panel: 2 No Data to Display Infectious Disease: 2 No Data to Display Blood Cultures: 2 No Data to Display Toxicology Panel: 2 No Data to Display Panel: 2 No Data to Display Anesthesia Assessment and Plan Anesthesia History Personal History: No History of Anesthesia Complications Family History: No Family History of Anesthesia Complications Exercise Tolerance Exercise Tolerance: Metabolic Equivalents>4 Cardiac & Pulmonary Exam Cardiac Exam: Normal S1/S2 Heart Sounds Pulmonary Exam: Clear Bilateral Breath Sounds Implantable Cardiac Device Does patient have a Pacemaker or an ICD?: No Airway Exam Known Difficult Airway: No Mallampati Class: 2 Mouth Opening: Normal (> 3cm) Thyromental Distance: Greater than 3 cm Neck Range of Motion: Full ROM Neck Circumference: Normal Teeth Condition: Normal Dentition ASA Classification ASA Score: ASA 2 Emergency Case?: No NPO Status NPO Status: Full Stomach Status Status: Confirmed Anesthesia Plan Resuscitation Status: Full Code Anesthesia Technique: Labor Epidural Airway Planned: Natural Airway Monitors Used: Standard Monitors
[2024-06-01] MEDS: Normal Saline Flush 10 ML SYR IVP (09:51)
[2024-06-01] MEDS: Lactated Ringers 250 ML 125 ML IV (10:49)
[2024-06-01] MEDS: FentaNYL/ROPIvacaine 2 mcg/ml and 0.1% 200 ML CADD Cassette EP (10:50)
--- NOTE | 2024-06-01 10:56 | W.PM.OBNL1 ---
Date of service: 06/01/24 Time of Service: 10:56 Informed Consent Informed Consent: Induction of Labor (risks and benefits of induction of labor including risk of ) Pelvic Exam Comments: exam deferred, membranes intact Contractions Monitor Mode: External Contraction Frequency(min): every 3-6 Contraction Duration(sec): 40-60 Intensity: Moderate Fetus A Monitor: External (US) Heart Rate Baseline: 140 Presentation: Cephalic Variability: Moderate (6-25 BPM) Categories: Category I FHR Rhythm: Regular Accelerations: 15 X 15 Decelerations: None Amniotic Membrane Status: Intact Assessment and Plan Assessment and plan (1) Encounter for induction of labor: Status: Acute Assessment and plan: comfort measures. Saira would like to try nitrous oxide and that was provided. Will examine cervix when appropriate. Objective Abnormal lab results 05/31/24 Range/Units 11:15 RBC 3.77 L (3.93-5.22) 10^6/uL MCV 98 H (80-95) fL MCH 33.2 H (27.0-33.0) pg Temp Pulse Resp BP Pulse Ox 98.8 F 86 18 118/72 98 06/01/24 09:10 06/01/24 10:53 06/01/24 09:10 06/01/24 10:51 06/01/24 10:53 Laboratory Results WBC 10.59 10^3/uL (4.4-10.8) 05/31/24 11:15 RBC 3.77 10^6/uL (3.93-5.22) L 05/31/24 11:15 Hgb 12.5 g/dL (11.2-15.7) 05/31/24 11:15 Hct 37.0 % (36.0-46.0) 05/31/24 11:15 MCV 98 fL (80-95) H 05/31/24 11:15 MCH 33.2 pg (27.0-33.0) H 05/31/24 11:15 MCHC 33.8 % (32.0-36.0) 05/31/24 11:15 RDW 13.0 % (11.7-14.6) 05/31/24 11:15 Plt Count 223 10^3/uL (130-400) 05/31/24 11:15 MPV 11.0 fL (8.0-11.0) 05/31/24 11:15 ABO/Rh O Positive 05/31/24 11:15 Antibody Screen NEGATIVE 05/31/24 11:15 Subjective Patient Reports: New Complaints Interval history since last seen: Saira reports stronger contractions and requests pain medication. Results Hemoglobin/Hematocrit: Hgb 12.5 g/dL (11.2-15.7) 05/31/24 11:15 Hct 37.0 % (36.0-46.0) 05/31/24 11:15 Abnormal Lab Findings: Abnormal Labs 05/31/24 11:15 RBC 3.77 L MCV 98 H MCH 33.2 H
--- NOTE | 2024-06-01 10:59 | W.PM.OBNL1 ---
Date of service: 06/01/24 Time of Service: 10:59 Informed Consent Informed Consent: Induction of Labor (risks and benefits of induction of labor including risk of ) Pelvic Exam Dilation: 2 station: -2 Cervix Position: posterior Consistency: soft Vaginal Exam Presentation: Cephalic Comments: exam deferred until after epidural. Contractions Monitor Mode: External Contraction Frequency(min): every 3-7 Contraction Duration(sec): 60 Intensity: Moderate/Strong Fetus A Monitor: External (US) Heart Rate Baseline: 140 Presentation: Vertex Variability: Moderate (6-25 BPM) Categories: Category I FHR Rhythm: Regular Accelerations: 15 X 15 Decelerations: None Amniotic Membrane Status: Intact Assessment and Plan Assessment and plan (1) Encounter for induction of labor: Status: Acute Assessment and plan: Epidural placed by Eder Tejada with excellent effect. Saira was encouraged to rest and pitocin was ordered to be started when staffing allows. Anticipate . Objective Abnormal lab results 05/31/24 Range/Units 11:15 RBC 3.77 L (3.93-5.22) 10^6/uL MCV 98 H (80-95) fL MCH 33.2 H (27.0-33.0) pg Temp Pulse Resp BP Pulse Ox 98.8 F 92 H 18 118/72 98 06/01/24 09:10 06/01/24 10:58 06/01/24 09:10 06/01/24 10:51 06/01/24 10:58 Laboratory Results WBC 10.59 10^3/uL (4.4-10.8) 05/31/24 11:15 RBC 3.77 10^6/uL (3.93-5.22) L 05/31/24 11:15 Hgb 12.5 g/dL (11.2-15.7) 05/31/24 11:15 Hct 37.0 % (36.0-46.0) 05/31/24 11:15 MCV 98 fL (80-95) H 05/31/24 11:15 MCH 33.2 pg (27.0-33.0) H 05/31/24 11:15 MCHC 33.8 % (32.0-36.0) 05/31/24 11:15 RDW 13.0 % (11.7-14.6) 05/31/24 11:15 Plt Count 223 10^3/uL (130-400) 05/31/24 11:15 MPV 11.0 fL (8.0-11.0) 05/31/24 11:15 ABO/Rh O Positive 05/31/24 11:15 Antibody Screen NEGATIVE 05/31/24 11:15 Subjective Patient Reports: No new Complaints Interval history since last seen: Saira did not receive relief from nitrous oxide and requested an epidural. I attempted cervical exam which Saira did not tolerate and I was unable to setermine dilation. Vertex is -2. exam deferred until after epidural placement. Results Hemoglobin/Hematocrit: Hgb 12.5 g/dL (11.2-15.7) 05/31/24 11:15 Hct 37.0 % (36.0-46.0) 05/31/24 11:15 Abnormal Lab Findings: Abnormal Labs 05/31/24 11:15 RBC 3.77 L MCV 98 H MCH 33.2 H
--- NOTE | 2024-06-01 11:15 | ANES.NEUR_ITS ---
Epidural/Spinal Catheter Date Performed: 06/01/24 Procedure Start: 10:05 Procedure Stop: 10:32 Requesting Provider: Yolis Chapman Procedure Location: Obstetrics Reason Performed: Labor Epidural Standard Monitors Applied: Blood Pressure, SpO2 and See EMR for corresponding vital signs Patient Position: Sitting Sedation Given (Indicate Dose Given): No Sedation given Patient Mental Status: Awake Sterility: Hand Hygiene, Surgical Cap, Surgical Mask, Sterile Gloves, Sterile Drape/Sheet and Chlorhexidine Procedure Location: L3-L4 Interspace Epidural Needle: Tuohy 18 Gauge Needle Length: 3.5 Inch Needle Approach: Midline Epidural Procedure: Skin Prepped, Sterile Drape Placed, 1% Lidocaine to skin and subcutaneous tissue with 25G needle, Tuohy Needle placed, DANNY to Saline Used, Epidural Catheter Placed, Negative Heme, Negative CSF Flow and Tuohy Needle Removed Catheter Placed?: Catheter Placed Test Dose (Indicate Dose Given): 3ml 1.5% Lidocaine with 1:200K Epinephrine Given and Negative Test Dose Loss of Resistance Depth (cm): 5 Catheter depth at skin (cm): 12 Dressing: [place] Dressing Placed, Mastisol Used and Dressing reinforced with Tape Epidural Pr ovider Bolus (Indicate Dose Given): Total bolus dose given in 3-5 ml divided doses and Total Ropivacaine 0.1% with Fentanyl 2mcg/ml Given from pump. (ml) Dose:: 5 mL Additives (Indicate Dose Given ): None Infusion Medication: Medication Infusion Began Medication Infusion: Ropivacaine 0.1% with Fentanyl 2mcg/ml Maintenance Infusion Rate (ml/hour): 10 PCEA Bolus Dose (ml): 5 Post Procedure Pain score (0-10): 0 Block Level: N/A Paresthesia: None Ultrasound: Not Used Number of Attempts (See previous attempts in note section): 1 Procedure Tolerated: No Complications and Patient tolerated well Procedure Outcome: Successful Procedure Comment:: Pt. tolerated this very well. After bolus given, pt. complained of being dizzy and flushed. BP recheck showed drop from 120 to 102 systolic. This feeling passed without intervention over the next few minutes. pt. comfortable only feeling pressure bilaterally. Educated on PCEA use as well as adverse effects to be aware of and all questions answered. Performed By: Vahe Christine Supervised By: Eder Tejada
[2024-06-01] MEDS: Oxytocin/Normal Saline 30 UNIT/500 ML BAG 2 UNITS IV (12:50)
[2024-06-01] MEDS: Lactated Ringers 1,000 ML 125 ML IV (14:00)
[2024-06-01] MEDS: Ondansetron 4 MG/2 ML VIAL IVP (15:37)
--- NOTE | 2024-06-01 17:21 | W.PM.OBNL1 ---
Date of service: 06/01/24 Time of Service: 17: Informed Consent Informed Consent: Induction of Labor (risks and benefits of induction of labor including risk of ) Pelvic Exam Dilation: 5 Effacement (%): 100 station: -1 Cervix Position: mid Consistency: soft Vaginal Exam Presentation: Cephalic Pooling: Positive Contractions Monitor Mode: External Contraction Frequency(min): every 3 min Contraction Duration(sec): 60 Intensity: Moderate/Strong Fetus A Monitor: External (US) Heart Rate Baseline: 150 Presentation: Cephalic Variability: Moderate (6-25 BPM) Categories: Category I FHR Rhythm: Regular Accelerations: 15 X 15 Decelerations: Variable Recurrence: Episodic Amniotic Membrane Status: Ruptured Rupture Method: Spontaneous Amniotic Fluid: Meconium Amount: mod Assessment and Plan Assessment and plan (1) Encounter for induction of labor: Status: Acute Assessment and plan: Will ree-assess for cervical change in 2 hours. Consider IUPC monitoring. Anticipate . Dr Lamas notified of patient's status and she viewed the heart rate tracing. Objective Temp Pulse Resp BP Pulse Ox 99.3 F 71 18 118/59 L 94 06/01/24 17:09 06/01/24 17:09 06/01/24 17:09 06/01/24 17:09 06/01/24 13:28 Laboratory Results WBC 10.59 10^3/uL (4.4-10.8) 05/31/24 11:15 RBC 3.77 10^6/uL (3.93-5.22) L 05/31/24 11:15 Hgb 12.5 g/dL (11.2-15.7) 05/31/24 11:15 Hct 37.0 % (36.0-46.0) 05/31/24 11:15 MCV 98 fL (80-95) H 05/31/24 11:15 MCH 33.2 pg (27.0-33.0) H 05/31/24 11:15 MCHC 33.8 % (32.0-36.0) 05/31/24 11:15 RDW 13.0 % (11.7-14.6) 05/31/24 11:15 Plt Count 223 10^3/uL (130-400) 05/31/24 11:15 MPV 11.0 fL (8.0-11.0) 05/31/24 11:15 ABO/Rh O Positive 05/31/24 11:15 Antibody Screen NEGATIVE 05/31/24 11:15 Subjective Patient Reports: New Complaints Interval history since last seen: Saira is not experiencing any pain with contractions. She was experiencing nausea and she vomited at 1528. She voided approximately 400 cc clear urine. SVE and she was 5 cms/-2 and 100% effaced. She was reexamined at 1644 and cervix and she was 5 cms and -1/ 100% effaced with a large bulging bag of water. SROM occurred with exam for a mod amount of moderate meconium stained fluid. Temp 37.3 Results Hemoglobin/Hematocrit: Hgb 12.5 g/dL (11.2-15.7) 05/31/24 11:15 Hct 37.0 % (36.0-46.0) 05/31/24 11:15 Abnormal Lab Findings: Abnormal Labs 05/31/24 11:15 RBC 3.77 L MCV 98 H MCH 33.2 H
--- NOTE | 2024-06-01 19:17 | PGE_ITS ---
Date of service: 06/01/24 Time of Service: 19:17 Informed Consent Informed Consent: Induction of Labor (risks and benefits of induction of labor including risk of ) Pelvic Exam Dilation: 5 Effacement (%): 100 (marked edema) station: -1 Cervix Position: posterior Consistency: soft Vaginal Exam Presentation: Cephalic Pooling: Positive Comments: bloody fluid noted Contractions Monitor Mode: Palpation Contraction Frequency(min): every 2-3 Contraction Duration(sec): 60 Intensity: Strong IUPC resting tone (mmHg): 15 IUPC peak pressure (mmHg): 80 IUPC [place] units: 200 Fetus A Monitor: External (US) Heart Rate Baseline: 160 Presentation: Vertex Variability: Moderate (6-25 BPM) Categories: Category II FHR Rhythm: Regular Accelerations: 15 X 15 Decelerations: Late and Variable Recurrence: Episodic Assessment Note: IUPC placed. IV bolus 500 cc. late decelerations noted, Pitocin discontinued at 1900. Dr. Lamas called and notified of heart rate pattern and lack of progress in labor.. Assessment and Plan Assessment and plan (1) Encounter for induction of labor: Status: Acute Assessment and plan: Will continue to observe pattern with pitocin off. Discussed possibility of section if indicated with Saira and Shiv. Will reexamine in 1 hour or earlier if indicated. Objective Temp Pulse Resp BP Pulse Ox 99.1 F 76 16 117/57 L 94 06/01/24 18:34 06/01/24 18:34 06/01/24 18:34 06/01/24 18:34 06/01/24 13:28 Laboratory Results WBC 10.59 10^3/uL (4.4-10.8) 05/31/24 11:15 RBC 3.77 10^6/uL (3.93-5.22) L 05/31/24 11:15 Hgb 12.5 g/dL (11.2-15.7) 05/31/24 11:15 Hct 37.0 % (36.0-46.0) 05/31/24 11:15 MCV 98 fL (80-95) H 05/31/24 11:15 MCH 33.2 pg (27.0-33.0) H 05/31/24 11:15 MCHC 33.8 % (32.0-36.0) 05/31/24 11:15 RDW 13.0 % (11.7-14.6) 05/31/24 11:15 Plt Count 223 10^3/uL (130-400) 05/31/24 11:15 MPV 11.0 fL (8.0-11.0) 05/31/24 11:15 ABO/Rh O Positive 05/31/24 11:15 Antibody Screen NEGATIVE 05/31/24 11:15 Vital Signs Reviewed: Yes Subjective Patient Reports: No new Complaints Interval history since last seen: Saira is resting comfortably. She is feeling pressure but denies pain. Results Hemoglobin/Hematocrit: Hgb 12.5 g/dL (11.2-15.7) 05/31/24 11:15 Hct 37.0 % (36.0-46.0) 05/31/24 11:15 Abnormal Lab Findings: Abnormal Labs 05/31/24 11:15 RBC 3.77 L MCV 98 H MCH 33.2 H
--- NOTE | 2024-06-01 20:25 | W.PM.OBNL1 ---
Date of service: 06/01/24 Time of Service: 08:15 Informed Consent Informed Consent: Induction of Labor (risks and benefits of induction of labor including risk of ) Pelvic Exam Dilation: 5 station: -1 Fetus A Heart Rate Baseline: 165 Presentation: Vertex Variability: Moderate (6-25 BPM) Categories: Category II Decelerations: Late (intermittent) and Variable (intermittent) Assessment and Plan Assessment and plan (1) Arrested active phase of labor: Status: Acute Assessment and plan: P0 @40.6wks with arrest of dilation at 5cm, Cat 2 FHT. We discussed the recommendation for a CS due to various concerns and she is agreeable to this. We reviewed the procedure and recovery as well as risks including infection, bleeding, pain and injury to nearby organs. All her questions were answered and consents signed. The appropriate people were notified. Objective Temp Pulse Resp BP Pulse Ox 99.0 F 76 16 117/57 L 94 06/01/24 19:49 06/01/24 18:34 06/01/24 18:34 06/01/24 18:34 06/01/24 13:28 Laboratory Results WBC 10.59 10^3/uL (4.4-10.8) 05/31/24 11:15 RBC 3.77 10^6/uL (3.93-5.22) L 05/31/24 11:15 Hgb 12.5 g/dL (11.2-15.7) 05/31/24 11:15 Hct 37.0 % (36.0-46.0) 05/31/24 11:15 MCV 98 fL (80-95) H 05/31/24 11:15 MCH 33.2 pg (27.0-33.0) H 05/31/24 11:15 MCHC 33.8 % (32.0-36.0) 05/31/24 11:15 RDW 13.0 % (11.7-14.6) 05/31/24 11:15 Plt Count 223 10^3/uL (130-400) 05/31/24 11:15 MPV 11.0 fL (8.0-11.0) 05/31/24 11:15 ABO/Rh O Positive 05/31/24 11:15 Antibody Screen NEGATIVE 05/31/24 11:15 Vital Signs Reviewed: Yes Subjective Interval history since last seen: Pt has been undergoing induction at 40.5wks for 2 days. She progressed into active labor on pitocin today, received an epidural and was found to be 5cm. She has remained 5cm for almost 5hrs, the cervix has become swollen and she has a Cat 2 FHT with periods of late decels and a baseline increased to 165. Results Hemoglobin/Hematocrit: Hgb 12.5 g/dL (11.2-15.7) 05/31/24 11:15 Hct 37.0 % (36.0-46.0) 05/31/24 11:15 Abnormal Lab Findings: Abnormal Labs 05/31/24 11:15 RBC 3.77 L MCV 98 H MCH 33.2 H
[2024-06-01] MEDS: AZITHROMYCIN 500 MG in Normal Saline 250 ML 250 MG IVPB (20:47)
--- NOTE | 2024-06-01 21:40 | PLAC_PTH ---
PATIENT: Saira Mooney LOC: OBS U#:[id number] AGE/SX: 33/F ROOM: OBS.301 RE05/31/[address]: Yolis Chapman : 1990 BED: A DIS: 06/03/2024 SPEC #: [id number] RECD: 06/02/24 12:27 STATUS: MAY REQ #: [id number] KIMMIE: 06/01/24 21:[address]: Daniela Lamas DEPT: Surgical Specimen RECD BY: Inez Prasad ENTERED: 06/02/24 12:28 SP TYPE: PLAC OTHR DR: Yolis Chapman Unknown,Unknown Tissues: 1 - PLACENTA (3RD TRIMESTER) Procedures: GROSS AND MICRO LEVEL 5 Comments: [id number]
--- NOTE | 2024-06-01 23:05 | PDOC.OPNB_ITS ---
Date of service: 06/01/24 Time of Service: 22:00 Operative Note Operative Note Delivery Method: Unscheduled STAT: No and Primary NTSV>37 Weeks: Yes DATE OF PROCEDURE: 06/01/24 PRE-OP DIAGNOSES: Arrest of dilation, Cat 2 FHT, thick meconium POST-OP DIAGNOSES: same PROCEDURE: Primary transverse section SURGEON: Daniela Lamas Assisting Surgeon: Yolis Chapman Estimated blood loss (mL): 1,000 Pathology: other (placenta) Complications: Other (high spinal) Patient was transported to: floor Patient's condition: stable Findings: Normal appearing uterus, ovaries, tubes with a ~3cm fibroid on the right mid anterior side of the uterus. Placenta was normal appearing with a 3 vessel cord. Procedure Description: After informed consent was signed the patient was taken to the operating room. She was given spinal anesthesia, SCDs were placed on her legs and a farrar catheter was introduced into her bladder. The heart rate was checked and was normal. She underwent abdominal and vaginal prep and was draped in the dorsal supine position with a leftward tilt. The patient was tested and spinal anesthesia was found to be adequate. There was concerns for a high spinal at this time but she did not progress to need intubation. A time out was performed. The skin was injected with 0.25% marcaine along the length of the planned incision. A skin incision was made with the scalpel and carried down to the underlying layer of fascia with blunt dissection. The fascia was incised on either side of the midline and the fascial incision extended laterally with a combination of sharp and blunt dissection. The inferior edge of the fascia was grasped with zen clamps and tented up and dissected down with a combination of sharp and blunt dissection. Then the superior edge of the fascial incision was grasped with zen clamps and tented up and dissected down with a combi [place] of sharp and blunt dissection. The rectus muscles were in the midline and the peritoneum was entered bluntly. The peritoneal incision was extended laterally with blunt dissection. The bladder blade was inserted. A transverse incision was made in the lower uterine segment with the scalpel. The incision was extended superiorly and inferiorly with blunt pressure. The infants head was brought out of the pelvis and delivered with fundal pressure followed by the shoulders and the rest of the body. The baby had good tone and cried. The cord was milked toward the baby and after 1min it was clamped x2 and cut. The baby was handed to the machine tool mechanic. Cord blood was collected. The placenta delivered with fundal massage and gentle cord traction and appeared to be intact. The uterus was exteriorized and cleared of clots and debris. The uterine incision was closed with 0-vicryl in a running locked fashion with a second layer of suture imbricating the first. Good hemostasis was noted along the incision. However, there seemed to be some blood slowly accumulating in the pelvis. The posterior aspect of the uterus was inspected and there was a small abrasion noted at the end of the left tube which was cauterized with resulting hemostasis. The uterus was placed back into the abdominal cavity for better visualization. Eventually the bleeding seemed to be coming from the left side of the uterine incision so a figure of 8 suture was placed with good hemostasis. Clots were cleared from the peritoneal cavity with lap sponges. The incision was inspected once again and good hemostasis was noted. There was good hemostasis of the rectus muscles. The fascia was closed with 0- vicryl in a running unlocked fashion. The subcuticular layer was irrigated and closed with interrupted sutures of 3-0 vicryl. The skin was closed with 4-0 vicryl in a running subcuticular fashion. The incision was cleaned. Mastisol and steristrips were placed. A dressing was placed. The fundus was palpated to be firm. The patient was moved to the stretcher and taken to the recovery room in stable condition. Gender: Female See Nursing Delivery Note for weight and Scores: apgars 9/9
[2024-06-02] VITALS (87 sets, daily range): BP systolic 87–125; BP diastolic 47–66; PULSE 66–105; RESP 16–18; TEMP 36.4–37.1; O2SAT 93–99
[2024-06-02] MEDS: Ketorolac 30 MG/ML VIAL IVP ×3 (00:09→12:05)
--- NOTE | 2024-06-02 07:33 | PDOC.ANES ---
Date of service: 06/02/24 Time of Service: 07:33 Anesthesia Note Report Anesthesia Note: Paged at 0630 from OB RN due to concerns that spinal has not worn off. States pt. feels abdomen but not legs. Spinal was around 0 last night. i came in to evaluate patient who is in no obvious distress. She states she has numbness and tingling bilaterally from Shins to my feet. I asked her to bend her legs at the knee and she said it hurt too much in her incision. I gave her a pillow to splint abdomen and she was then able to move both legs. Strength 5/5. Arms/hands strength 5/5 without numbness/tingling. I then removed SCD's and she immediately stated that her legs felt normal again. Alcohol prep used to identify lack of sensation but she was able to feel cold alcohol sensation on skin from foot to chest where examined. We discussed initial concern for spinal/epidural hematoma but given exam, I do not believe this to be the case.I encouraged position changes as she has been on her back all night and ambulation this morning with assistance. She will notify RN of any additional concerns. We discussed events of last nights and all of her questions were answered.
--- NOTE | 2024-06-02 07:51 | W.ANESPOSTOP ---
Postoperative Evaluation Date, Time and Location Date Performed: 06/02/24 Time Performed: 07:52 Patient Location: Day Surgery Unit Vital Signs Most Recent Imported Vital Signs: Most Recent Vital Signs Temp Pulse Resp BP Pulse Ox 36.7 C 66 16 95/47 L 99 06/02/24 01:54 06/02/24 06:36 06/02/24 06:20 06/02/24 06:36 06/02/24 05:47 Pain Score Most Recent Pain Score: Most Recent Pain Score Pain Level 2 06/02/24 06:20 Assessment Mental Status: Awake (Alert & Oriented to Patient Baseline) Airway and Respiratory Function: Patent airway with normal (patient baseline) respiratory exam Cardiovascular Function: Hemodynamically Stable Hydration Status: Adequately Hydrated Nausea & Vomiting: No Nausea or Vomiting Pain: Pain is tolerable per patient Peripheral Nerve Block: Patient did not receive a nerve block
[2024-06-02 07:59] LABS: HCT 30.1 % (36.0-46.0); HGB 10.2 g/dL (11.2-15.7); MCH 33.7 pg (27.0-33.0); MCHC 33.9 % (32.0-36.0); MCV 99 fL (80-95); MPV 10.5 fL (8.0-11.0); Platelet Count 176 10^3/uL (130-400); RBC 3.03 10^6/uL (3.93-5.22); RDW 13.5 % (11.7-14.6); RDW-SD 49.1 fL; WBC 18.84 10^3/uL (4.4-10.8)
--- NOTE | 2024-06-02 11:57 | W.PM.OBPNV1 ---
Date of service: 06/02/24 Time of Service: 11:57 Assessment and Plan Assessment and plan (1) Status post primary low transverse section: Status: Acute Assessment and plan: Pt comfortable. Will assist OOB today and farrar out. Support . NSAIDs for post op pain. Subjective Subjective Patient comments: Incisional pain (mild. controlled with NSAIDs) baby status: Doing well, Nursing well, Rooming in and Strong Bonding Observed feeding status: Exclusively breast feeding Exam Physical Exam Vital signs: Temp Pulse Resp BP Pulse Ox 98.1 F 76 16 87/51 L 99 06/02/24 01:54 06/02/24 07:58 06/02/24 06:20 06/02/24 07:58 06/02/24 05:47 Vital Signs Reviewed: Yes Constitutional Constitutional: no acute distress HEENT Exam HEENT Exam: Normal Neck Exam Neck Exam: Normal Respiratory Exam Respiratory Exam: Normal (lungs CTA bilaterally) Cardiovascular Exam Cardiovascular Exam: Normal (HRR ) Abdominal Exam Abdomen: Tender (generalized. Incision covered with Mepilex dressing.) Fundal Exam Fundus: Below Umbilicus and Firm Rectal Exam Rectal Exam: Not Done Extremities Exam Extremity Exam: Normal (SCDs in place) Back/Spine/Pelvis Exam Back Exam: Normal Skin Exam Skin Exam: Normal Neurological Exam Neurological Exam: Normal Psychiatric Exam Psychiatric Exam: Normal Results Hemoglobin/Hematocrit: Hgb 10.2 g/dL (11.2-15.7) L D 06/02/24 07:57 Hct 30.1 % (36.0-46.0) L 06/02/24 07:57 Abnormal Lab Findings: Abnormal Labs 05/31/24 06/02/24 11:15 07:57 WBC 18.84 H RBC 3.77 L 3.03 L Hgb 10.2 L D Hct 30.1 L MCV 98 H 99 H MCH 33.2 H 33.7 H
[2024-06-02] MEDS: Normal Saline Flush 10 ML SYR IVP (12:12)
[2024-06-02] MEDS: Ibuprofen 600 MG TAB (18:15)
[2024-06-02] MEDS: Acetaminophen 325 MG TAB 650 MG PO ×2 (19:29→23:13)
[2024-06-02] MEDS: Ibuprofen 600 MG TAB PO (23:14)
[2024-06-03] MEDS: oxyCODONE 5 MG TAB PO (02:32)
[2024-06-03 03:36] VITALS: BP 95/59; PULSE 88; RESP 16; TEMP 36.4; O2SAT 97
[2024-06-03] MEDS: Acetaminophen 325 MG TAB 650 MG PO (08:08)
[2024-06-03] MEDS: Docusate Sodium 100 MG CAP PO (08:09)
[2024-06-03] MEDS: Ibuprofen 600 MG TAB PO (08:09)
[2024-06-03 08:15] VITALS: BP 102/60; PULSE 90; RESP 20; TEMP 36.4; O2SAT 98
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
[2024-06-03] MEDS: Varicella Virus Vaccine (Live) 0.5 ML SC (10:09)
== END 2024-06-03 12:45 | disposition home or self-care (01) | DRG 787 ==
PROVIDERS: Obstetrics & Gynecology; Admitting Provider Advanced Practice Midwife; Visit Provider Advanced Practice Midwife
PROC: 10D00Z1 Extraction of Products of Conception, Low, Open Approach (ICD-10-PCS; CPT 59514; principal; 2024-06-01 20:40)
DX: O48.0 Post-term pregnancy (principal); N13.30 Unspecified hydronephrosis; Z3A.40 40 weeks gestation of pregnancy; Z37.0 Single live birth; O34.13 Maternal care for benign tumor of corpus uteri, third trimester; D25.9 Leiomyoma of uterus, unspecified; O99.62 Diseases of the digestive system complicating childbirth; K80.20 Calculus of gallbladder without cholecystitis without obstruction; O99.344 Other mental disorders complicating childbirth; F32.A Depression, unspecified; O99.892 Other specified diseases and conditions complicating childbirth; O77.0 Labor and delivery complicated by meconium in amniotic fluid; O61.1 Failed instrumental induction of labor; O76 Abnormality in fetal heart rate and rhythm complicating labor and delivery; O62.1 Secondary uterine inertia; R11.2 Nausea with vomiting, unspecified; O75.89 Other specified complications of labor and delivery
CPT/HCPCS: 59514; 59200; 36415; 82803; 85027; 86850; 86900; 86901; 90716; 88307; J0330; J0456; J0665; J1885; J2274; J2371; J2405; J2704; J3010; J3490

== ENCOUNTER 2024-06-12 13:01 | Outpatient (CLI) | payer OTHER, SELFPAY ==
[2024-06-12 13:03] LABS: Abs Immature Grans 0.12 10^3/uL (0.0-0.06); Absolute Lymphocyte Count 1.29 10^3/uL (1.2-3.4); Absolute Monocyte Count 0.69 10^3/uL (0.1-0.8); Basophils % 0.2 %; Eosinophils % 0.6 %; HCT 29.4 % (36.0-46.0); HGB 9.6 g/dL (11.2-15.7); Immature Grans % 0.7 %; Lymphocytes % 7.7 %; MCH 31.7 pg (27.0-33.0); MCHC 32.7 % (32.0-36.0); MCV 97 fL (80-95); MPV 8.8 fL (8.0-11.0); Monocytes % 4.1 %; Neutrophils % 86.7 %; Platelet Count 548 10^3/uL (130-400); RBC 3.03 10^6/uL (3.93-5.22); RDW-SD 46.5 fL; WBC 16.74 10^3/uL (4.4-10.8)
[2024-06-12 13:06] LABS: Absolute Basophil Count 0.03 10^3/uL (0.0-0.2); Absolute Neutrophil Count 14.51 10^3/uL (1.2-6.7)
[2024-06-12 13:08] LABS: Anion Gap 10.7 mmol/L (3-11); BUN 8 mg/dL (7-18); CO2 27.3 mmol/L (21.0-32.0); CREATININE 0.9 mg/dL (0.55-1.02); Calcium 9.3 mg/dL (8.5-10.1); Chloride 106 mmol/L (98-107); Glucose 103 mg/dL (74-106); Potassium 3.2 mmol/L (3.5-5.1); Sodium 144 mmol/L (136-145)
== END 2024-06-12 13:02 | disposition home or self-care (01) ==
LOC: LBO 13:02
PROVIDERS: Visit Provider Obstetrics & Gynecology
DX: R10.32 Left lower quadrant pain (principal); Z98.891 History of uterine scar from previous surgery
CPT/HCPCS: 36415; 80048; 85025

== ENCOUNTER 2024-06-12 16:39 | Inpatient (IN) | payer OTHER, SELFPAY ==
[2024-06-12] VITALS (14 sets, daily range): BP systolic 120–130; BP diastolic 50–74; PULSE 95–108; RESP 16–34; TEMP 36.8–39; O2SAT 96–100
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
[2024-06-12 17:37] LABS: Abs Immature Grans 0.11 10^3/uL (0.0-0.06); Absolute Basophil Count 0.03 10^3/uL (0.0-0.2); Absolute Lymphocyte Count 1.44 10^3/uL (1.2-3.4); Absolute Monocyte Count 0.65 10^3/uL (0.1-0.8); Basophils % 0.2 %; Eosinophils % 0.6 %; HCT 28.1 % (36.0-46.0); HGB 9.3 g/dL (11.2-15.7); Immature Grans % 0.7 %; Lymphocytes % 9.3 %; MCH 32.6 pg (27.0-33.0); MCHC 33.1 % (32.0-36.0); MCV 99 fL (80-95); MPV 9.1 fL (8.0-11.0); Monocytes % 4.2 %; Platelet Count 549 10^3/uL (130-400); RBC 2.85 10^6/uL (3.93-5.22); RDW 13.1 % (11.7-14.6); RDW-SD 46.8 fL; WBC 15.46 10^3/uL (4.4-10.8)
[2024-06-12 17:44] LABS: Absolute Eosinophil Count 0.09 10^3/uL (0.0-0.7); Absolute Neutrophil Count 13.14 10^3/uL (1.2-6.7)
[2024-06-12 17:52] LABS: ALT 16 U/L (14-59); AST 11 U/L (15-37); Albumin 2.3 g/dL (3.4-5.0); Alkaline Phosphatase 147 U/L (46-116); Anion Gap 10.2 mmol/L (3-11); BUN 8 mg/dL (7-18); Bilirubin, Total 0.17 mg/dL (0.2-1.0); CO2 26.8 mmol/L (21.0-32.0); CREATININE 0.9 mg/dL (0.55-1.02); Calcium 8.9 mg/dL (8.5-10.1); Chloride 106 mmol/L (98-107); Glucose 105 mg/dL (74-106); Lipase 26 U/L (<78); Magnesium 2.1 mg/dL (1.8-2.4); Sodium 143 mmol/L (136-145); Total Protein 7.4 g/dL (6.4-8.2)
[2024-06-12 17:56] LABS: Potassium 2.9 mmol/L (3.5-5.1)
[2024-06-12 18:32] LABS: Bilirubin Negative (Negative); Blood Trace-lysed (Negative); Clarity Clear (Clear); Glucose Negative (Negative); Ketones Negative (Negative); Leukocyte Esterase Small (Negative); Nitrite Negative (Negative); Specific Gravity 1.015 (1.005-1.025); Urobilinogen 0.2 mg/dL (Up to 0.2)
--- NOTE | 2024-06-12 18:39 | DI.CT_ITS ---
Exam(s) CT ABDOMEN PELVIS WO/W EXAM: CT ABDOMEN PELVIS WO/W CLINICAL HISTORY: recent c section, llq pain TECHNIQUE: Imaging Protocol: Axial computed tomography images with coronal and sagittal reformatted images were created and reviewed. CONTRAST MATERIAL: Intravenous: Omnipaque 350 Contrast volume:100 mL Oral: No COMPARISON: US US OB 1ST TRIMESTER from 10/04/2023 FINDINGS: ABDOMEN: Lung Bases: There is a small left pleural effusion and small left basilar subjacent atelectasis. Liver: There is a tiny hypodensity in the right lobe of the liver which is too small for further renzo acterization but likely reflects a benign lesion such as a cyst. No suspicious hepatic masses are se en. Portal, Superior Mesenteric, and Splenic Veins: Unremarkable. Gallbladder and Biliary Tract: No radiodense calculus or dilation. Pancreas: Normal density, no abnormal calcifications or inflammatory process. Spleen: Normal. Adrenals: No masses seen. Kidneys: Normal size, contour and axis. No radiodense stones or obstructive uropathy. No masses seen. On the delayed images there is normal opacification of the ureters without evidence of extravasation of contrast. No findings to suggest a ureteral injury is seen. Abdominal Aorta: Abdominal portion non-dilated. Bowel: There is mild bowel wall thickening seen in the descending colon. There is no evidence of bow el obstruction. The remainder of the bowel is unremarkable. There is no evidence of appendicitis. Peritoneal Cavity: There is no free pelvic fluid. There is an encapsulated fluid collection in the l eft pericolic gutter adjacent to the descending colon and extending superiorly adjacent to the spleen . It measures 9.8 cm AP x 4.1 cm transverse by 15.2 cm craniocaudad. Finding is most suspicious for an abscess. No free air. Lymph Nodes: Within normal limits. Bones: Within normal limits for the patient's age. There is L5 spondylolysis but no spondylolisthesi s. Soft Tissues: Inflammatory stranding is seen in the lower anterior abdominal wall consistent with the patient's recent section. PELVIS: Bladder: Symmetric distention, no gross wall thickening. Reproductive Organs: There is a enlarged post uterus. There is a 3 cm hypodense subserosal mass arising from the right aspect of the uterus most consistent with a fibroid. The fibroid was de scribed on the ultrasound from 10/04/2023. Lymph Nodes: Within normal limits. Bones: Within normal limits for the patient's age. IMPRESSION: 1. Encapsulated fluid collection seen in the left pericolic gutter adjacent to the descending colon a nd extending superiorly adjacent to the spleen. The finding is suspicious for an abscess. 2. Thickening of the wall of the descending colon suggestive of an inflammatory/infectious colitis. 3. Fibroid is again seen in this uterus. 4. No evidence of ureteral injury. 5. Tiny left pleural effusion and subjacent infiltrate which may represent atelectasis or pneumonia. RADIATION DOSE DELIVERED: 2,066.65mGy.cm Total DLP 2,066.65mGy.cm Total DLP DATA REPOSITORY: All CT scans at this facility are submitted to the National Radiology Data Registry (NRDR) Dose Index Registry (DIR) with the [employer] ([employer]). RADIATION OPTIMIZATION: All CT scans at this facility use at least one of these dose optimization te chniques: automated exposure control; mA and/or kV adjustment per patient size (includes targeted exa ms where dose is matched to clinical indication); or iterative reconstruction.
[2024-06-12 18:40] LABS: Bacteria Rare HPF (Negative); C & S Indicated? No/Sq. Contamination; Casts Negative LPF (Negative); Crystals Negative HPF (Negative); Epithelial Cells Moderate HPF (Negative); Mucus Trace (Negative); Other Cells Rare Transitional (Negative); RBC 0-2 HPF (0-2)
[2024-06-12] MEDS: Normal Saline - Diluent 50 ML VIAL IJ (18:42)
[2024-06-12] MEDS: Omnipaque 350 MG/ML 100 ML BTL IJ (18:42)
[2024-06-12] MEDS: POTASSIUM CHLORIDE 10 MEQ/100 ML BAG 100 MEQ IV_INF (18:49)
[2024-06-12] MEDS: PIPERACILLIN/TAZO 4.5 GM in Normal Saline 100 ML IVPB (21:03)
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
[2024-06-12] MEDS: Ketorolac 30 MG/ML VIAL IVP (22:19)
[2024-06-12] MEDS: Acetaminophen 500 MG TAB 1000 MG PO (22:21)
[2024-06-12] MEDS: Normal Saline Flush 10 ML SYR IVP (22:22)
[2024-06-13] VITALS (10 sets, daily range): BP systolic 103–136; BP diastolic 54–85; PULSE 77–118; RESP 12–18; TEMP 36.7–39.9; O2SAT 95–98
[2024-06-13] MEDS: Normal Saline Flush 10 ML SYR IVP ×6 (02:49→21:05)
[2024-06-13] MEDS: PIPERACILLIN/TAZO 3.375 GM in Normal Saline 50 ML IVPB ×4 (02:50→21:05)
[2024-06-13] MEDS: Ketorolac 30 MG/ML VIAL IVP ×3 (03:35→15:15)
[2024-06-13] MEDS: Acetaminophen 500 MG TAB 1000 MG PO ×4 (03:35→21:00)
[2024-06-13 06:20] LABS: HCT 27.8 % (36.0-46.0); MCH 31.9 pg (27.0-33.0); MCHC 32.4 % (32.0-36.0); MCV 99 fL (80-95); MPV 9.1 fL (8.0-11.0); Platelet Count 499 10^3/uL (130-400); RBC 2.82 10^6/uL (3.93-5.22); RDW 13.2 % (11.7-14.6); RDW-SD 47.8 fL
[2024-06-13] MEDS: Prenatal Multivitamin w/CA,FE TAB 1 TAB PO (09:29)
--- NOTE | 2024-06-13 14:23 | PGE_ITS ---
Date of Service Date of service: 06/13/24 Time of Service: 14:00 Assessment and Plan Assessment and plan (1) Status post primary low transverse section: Status: Acute Assessment and plan: Will plan to remove steristrips before discharge (2) Intra-abdominal abscess: Status: Acute Assessment and plan: Pt is 12 days s/p PCS for arrest of labor with recent dx of left pelvic abscess dx'd on CT scan last evening. [facility] was contacted today and they accept her for drainage of the abscess but cannot do so today. They will contact us tomorrow to arrange drainage. She is now on a clear diet and will be NPO after midnight. Will try Reglan for her nausea as she does not want to take zofran since it slowed down her bowels during . Will consider IV narcotic pain meds if pain does not improve over the next hour or so. Subjective Subjective Interval history since last seen: Pt was feeling much better this am and since she was not having the IR procedure today she ate a little mac n cheese and pudding for lunch. However, about 10min after lunch she felt increased abdominal cramping and an increase in chills. She reports that over the last few days she has had diarrhea. Prior to that she had 2 normal BMs s/p surgery. No blood in her stool. No significant vaginal bleeding. She had Toradol and tylenol for pain this am and is not yet due for more. Exam Const General: cooperative and healthy appearing Other: Pt curled up in bed with visible chills. HENMT Head: normocephalic and atraumatic Ears: hearing grossly normal bilaterally Resp Effort & Inspection: normal respiratory effort and able to speak in complete sentences GI Other: Moderate tenderness to palpation of left lower quadrant. Faint bowel sounds. Neuro General: patient alert and patient awake Psych Appearance: grossly normal Mental Status: mental status grossly normal Speech and Movement: speech and movement normal Affect: normal affect Attitude: cooperative Thought Process: normal Thought Content: normal Objective Last Vital Signs Temp 98.8 F 06/13/24 13:15 Pulse 85 06/13/24 13:15 Resp 14 06/13/24 13:15 BP 111/59 L 06/13/24 13:15 Pulse Ox 98 06/13/24 03:45 Laboratory Results - last 24 hr 06/12/24 06/12/24 06/13/24 17:26 18:25 06:00 WBC 15.46 H 13.60 H RBC 2.85 L 2.82 L Hgb 9.3 L 9.0 L Hct 28.1 L 27.8 L MCV 99 H 99 H MCH 32.6 31.9 MCHC 33.1 32.4 RDW 13.1 13.2 Plt Count 549 H 499 H MPV 9.1 9.1 Immature Gran % 0.7 Neutrophils % 85.0 Lymphocytes % 9.3 Monocytes % 4.2 Eosinophils % 0.6 Basophils % 0.2 Nucleated RBC % 0.0 Absolute Neutrophils 13.14 H Absolute Lymphocytes 1.44 Absolute Monocytes 0.65 Absolute Eosinophils 0.09 Absolute Basophils 0.03 Sodium 143 Potassium 2.9 L* Chloride 106 Carbon Dioxide 26.8 Anion Gap 10.2 BUN 8 Creatinine 0.9 Est GFR (CKD-EPI 2020) 85.50 Glucose 105 Calcium 8.9 Magnesium 2.1 Total Bilirubin 0.17 L AST 11 L ALT 16 Alkaline Phosphatase 147 H Total Protein 7.4 Albumin 2.3 L Lipase 26 Urine Color Yellow Urine Clarity Clear Urine pH 6.0 Ur Specific [place] 1.015 Urine Protein 30 H Urine Ketones Negative Urine Blood Trace-lysed H Urine Nitrite Negative Urine Bilirubin Negative Urine Urobilinogen 0.2 Ur Leukocyte Esterase Small H Urine RBC 0-2 Urine WBC 3-5 Ur Epithelial Cells Moderate Urine Crystals Negative Urine Bacteria Rare Urine Casts Negative Urine Mucus Trace Urine Other Rare Transitional Ur Culture Indicated? No/Sq. Contamination Urine Glucose Negative ABO/Rh O Positive Antibody Screen NEGATIVE Time Spent with Patient Time Spent with Patient: 25-34 minutes Time was spent: preparing to see the patient(eg.review tests), obtaining and/or reviewing separately otained hiistory, referring, communicating with other health post acute care nurse practitioner and counseling the patient
[2024-06-13] MEDS: Metoclopramide 10 MG/2 ML VIAL IVP ×2 (14:43→21:00)
--- NOTE | 2024-06-13 19:50 | W.PM.PROGNOT ---
Date of Service Date of service: 06/13/24 Time of Service: 19:50 Subjective Subjective Patient reports: fever (shivering ) Interval history since last seen: Pt has had intermittent fevers throughout the day. She is currently experiencing shakes and chills. BP remains stable. I have ordered repeat BC x2. Pt will continue antipyretics Objective Last Vital Signs Temp 100.0 F H 06/13/24 18:45 Pulse 103 H 06/13/24 18:07 Resp 18 06/13/24 18:07 BP 120/62 06/13/24 18:07 Pulse Ox 98 06/13/24 18:07 Laboratory Results - last 24 hr 06/13/24 06:00 WBC 13.60 H RBC 2.82 L Hgb 9.0 L Hct 27.8 L MCV 99 H MCH 31.9 MCHC 32.4 RDW 13.2 Plt Count 499 H MPV 9.1 Time Spent with Patient Time Spent with Patient: <25 minutes Time was spent: preparing to see the patient(eg.review tests), obtaining and/or reviewing separately otained hiistory and referring, communicating with other health medicare sales representative
[2024-06-13 22:35] LABS: Lactate 0.7 mmol/L (0.6-1.4)
[2024-06-13 22:36] LABS: HCT 26.7 % (36.0-46.0); HGB 8.7 g/dL (11.2-15.7); MCH 31.5 pg (27.0-33.0); MCHC 32.6 % (32.0-36.0); MCV 97 fL (80-95); Platelet Count 500 10^3/uL (130-400); RBC 2.76 10^6/uL (3.93-5.22); RDW 13.2 % (11.7-14.6); RDW-SD 46.5 fL; WBC 16.57 10^3/uL (4.4-10.8)
[2024-06-13 22:52] LABS: ALT 15 U/L (14-59); AST 16 U/L (15-37); Albumin 2.1 g/dL (3.4-5.0); Alkaline Phosphatase 120 U/L (46-116); Anion Gap 13.4 mmol/L (3-11); BUN 6 mg/dL (7-18); Bilirubin, Total 0.38 mg/dL (0.2-1.0); CO2 22.6 mmol/L (21.0-32.0); CREATININE 1.1 mg/dL (0.55-1.02); Calcium 8.5 mg/dL (8.5-10.1); Chloride 107 mmol/L (98-107); Glucose 116 mg/dL (74-106); Sodium 143 mmol/L (136-145); Total Protein 6.6 g/dL (6.4-8.2)
[2024-06-13 22:56] LABS: Potassium 2.6 mmol/L (3.5-5.1)
[2024-06-13] MEDS: Loperamide 2 MG CAP 4 MG PO (23:15)
[2024-06-13] MEDS: Normal Saline 500 ML 1000 ML IV (23:15)
--- NOTE | 2024-06-13 23:58 | PGE_ITS ---
Date of Service Date of service: 06/13/24 Time of Service: 23:58 Assessment and Plan Assessment and plan (1) Intra-abdominal abscess: Status: Acute Assessment and plan: Pt unable to be transported today to [facility] for intraabdominal drain by IR. I spoke with but THAI attending at [facility] and Dr. Alma Carney at [facility] regarding recommendations for treatment of fevers and presumed pelvic abscess. No availability of MFM bed at [facility]. [facility] recommended increasing IV fluid resuscitation, stopping NSAIDs 2/2 increase in creatinine. If pt's status changes pt will be transported to [facility]. Plan is to contact [facility] in am and arrange transport to IR for drain placement. Fluid bolus administered and will increase IV fluid infusion rate. Continue on clear liquid diet. (2) Fever: Status: Acute Assessment and plan: Continue Acetaminophen. Will increase Zosyn dosing. Currently pending BC results. I martín another set of BC tonight. Pt's WBC has increased. Lactate nl. Qualifiers: Fever type: due to other condition Qualified Code(s): R50.81 - Fever presenting with conditions classified elsewhere (3) Hypokalemia: Status: Acute Assessment and plan: K 2.6. Will administer 10meq KCL IV and add to maintenance IV after replacement administered. (4) Diarrhea: Status: Acute Assessment and plan: No evidence of acute abdomen. Will hold stool softeners and administer anti- diarrheal med. Qualifiers: Diarrhea type: functional diarrhea Qualified Code(s): K59.1 - Functional diarrhea Subjective Subjective Patient reports: still having pain, diarrhea and fever Interval history since last seen: Pt's temp remains elevated for past 8 hrs despite Acetaminophen and Ibuprofen. Rigors and chills. Onset of diarrhea. Pt has decided to formula feed while she is experiencing fever and malaise. Exam Narrative Exam Narrative: HD 2 s/p admission to POD 11 after pLTCS. Zosyn 3.75mg IV initiated after blood cultures obtained. Pt defervesed overnight only to resume fever this afternoon. Continues to feel poorly. I reordered BCx2, CBC, CMP, Lactate, Covid, Influenza, and RSV PCR. Const General: diaphoretic and ill appearing Nutritional Appearance: well nourished Orientation: alert, awake and oriented x3 Chest Chest: normal inspection of the chest Resp Effort & Inspection: normal respiratory effort Auscultation: clear to auscultation bilaterally Cardio Rate: tachycardic Rhythm: regular rhythm GI Inspection: normal to inspection, no abdominal wall ecchymosis and non-distended Palpation: soft, no hepatosplenomegaly, not firm, mass (uterus involuting appropriately) and tender Auscultation: normal bowel sounds Rectal Exam - female: deferred General: deferred Back/Spine/Pelvis Back: no CVA tenderness Skin General skin exam: no rashes or lesions noted Neuro Cognition: normal cognition Speech: speech normal Gait: normal gait Extrem General: normal to inspection, full ROM and no clubbing, cyanosis or edema Psych Appearance: grossly normal Mental Status: mental status grossly normal Speech and Movement: speech and movement normal Mood: anxious mood Objective Last Vital Signs Temp 103.8 F H 06/13/24 21:00 Pulse 118 H 06/13/24 21:00 Resp 18 06/13/24 21:00 BP 127/54 L 06/13/24 21:00 Pulse Ox 98 06/13/24 18:07 Laboratory Results - last 24 hr 06/13/24 06/13/24 06/13/24 06:00 22:30 23:30 WBC 13.60 H 16.57 H RBC 2.82 L 2.76 L Hgb 9.0 L 8.7 L Hct 27.8 L 26.7 L MCV 99 H 97 H MCH 31.9 31.5 MCHC 32.4 32.6 RDW 13.2 13.2 Plt Count 499 H 500 H MPV 9.1 9.0 VBG Lactate 0.7 Sodium 143 Potassium 2.6 L* Chloride 107 Carbon Dioxide 22.6 Anion Gap 13.4 H BUN 6 L Creatinine 1.1 H Est GFR (CKD-EPI 2020) 67.20 Glucose 116 H Calcium 8.5 Total Bilirubin 0.38 AST 16 ALT 15 Alkaline Phosphatase 120 H Total Protein 6.6 Albumin 2.1 L COVID-19 Source Cancelled SARS-CoV-2 (PCR) Cancelled Influenza Type A (PCR) Cancelled Influenza Type B (PCR) Cancelled RSV (PCR) Cancelled Reviewed Pertinent PMH: Yes Objective Narrative Objective Narrative: Hypokalemia, leukocytosis, polycythemia, elevated creatine, nl lactate. BCx pending. Time Spent with Patient Time Spent with Patient: 25-34 minutes Time was spent: preparing to see the patient(eg.review tests), obtaining and/or reviewing separately otained hiistory, ordering medications,tests, procedures, referring, communicating with other health cattle care worker, indepentently interpreting results and counseling the patient
[2024-06-14] VITALS (36 sets, daily range): BP systolic 94–121; BP diastolic 33–70; PULSE 85–109; RESP 15–32; TEMP 37–39; O2SAT 93–100
--- NOTE | 2024-06-14 00:25 | W.PC.ACHO ---
Registration Status: Primary Language: Preferred Language: ED Information & Data Chief Complaint Abd Prob 06/12/24 17:11 Triage Note Pt arrives to ED d/t low hgb 06/12/24 16:48 + elevated WBC. Pt states she has had LLQ pain since her which has not improved. Pt has not had any imaging done yet for this issue. Pt had a on 06/01 Medical / Surgical History (Last Updated 06/13/24 @ 14:33 by Daniela Lamas MD) Uterine fibroid Moderate right ankle sprain Congenital spondylolisthesis of lumbar region (Last Reviewed 06/12/24 @ 21:18 by Xuan La MD) [place] teeth extracted Most Recent Vital Signs Temperature 39.9 C H 06/13/24 21:00 Temperature Source Tympanic 06/13/24 21:00 Pulse 118 H 06/13/24 21:00 Pulse Rhythm Regular 06/13/24 20:55 Pulse 108 H 06/12/24 20:10 Respiratory Rate 18 06/13/24 21:00 Respiratory Effort Normal, Non-Labored 06/12/24 21:45 Respiratory Depth Normal 06/12/24 21:45 Respiratory Pattern Normal 06/12/24 21:45 Blood Pressure 127/54 L 06/13/24 21:00 Blood Pressure Position Sitting 06/12/24 17:04 Pulse Oximetry 98 06/13/24 18:07 Oxygen Delivery Method Room Air 06/13/24 21:00 Oxygen Flow Rate 0 06/13/24 21:00 Pain Level 2 06/13/24 21:00 Allergies No Known Allergies Allergy (Verified 06/12/24 16:51) no drug or environmental or contact allergies Precautions Isolation Standard precaution 06/12/24 17:04 Active Medications Generic Name Dose Route Start Last Admin Trade Name Freq PRN Reason Stop Dose Admin Acetaminophen 1,000 mg 06/12/24 21:03 06/13/24 21:00 Acetaminophen 500 Mg Tab PO 1,000 mg Q6H PRN PRN Administration Iohexol 100 ml 06/12/24 18:45 06/12/24 18:42 Omnipaque 350 Mg/Ml 100 Ml Btl IJ 07/12/24 23:59 100 ml DIRECTED JESUS MANUEL Administration Metoclopramide HCl 10 mg 06/13/24 14:23 06/13/24 21:00 Metoclopramide 10 Mg/2 Ml Vial IVP 10 mg Q6H PRN PRN Administration Multivitamins 1 tab 06/13/24 08:30 06/13/24 09:29 Multivitamin W/Ca,Fe Tab PO 1 tab DAILY JESUS MANUEL Administration Sodium Chloride 0 ml 06/12/24 20:58 06/13/24 21:05 Normal Saline Flush 10 Ml Syr IVP 10 ml PRN PRN Administration Sodium Chloride 0 ml 06/13/24 08:30 06/13/24 15:16 Normal Saline Flush 10 Ml Syr IVP 10 ml BID JESUS MANUEL Administration IV IV Catheter Type [Right Saline Lock Antecubital] IV Catheter Gauge [Right 18 Antecubital] Diagnostics 06/14/24 06/13/24 06/13/24 Range/Units 00:18 23:30 22:30 WBC 16.57 H (4.4-10.8) 10^3/uL RBC 2.76 L (3.93-5.22) 10^6/uL Hgb 8.7 L (11.2-15.7) g/dL Hct 26.7 L (36.0-46.0) % MCV 97 H (80-95) fL MCH 31.5 (27.0-33.0) pg MCHC 32.6 (32.0-36.0) % RDW 13.2 (11.7-14.6) % Plt Count 500 H (130-400) 10^3/uL MPV 9.0 (8.0-11.0) fL VBG Lactate 0.7 (0.6-1.4) mmol/L Sodium 143 (136-145) mmol/L Potassium 2.6 L* (3.5-5.1) mmol/L Chloride 107 (98-107) mmol/L Carbon Dioxide 22.6 (21.0-32.0) mmol/L Anion Gap 13.4 H (3-11) mmol/L BUN 6 L (7-18) mg/dL Creatinine 1.1 H (0.55-1.02) mg/dL Est GFR (CKD-EPI 2020) 67.20 (mL/min/1.73m2) Glucose 116 H (74-106) mg/dL Calcium 8.5 (8.5-10.1) mg/dL Total Bilirubin 0.38 (0.2-1.0) mg/dL AST 16 (15-37) U/L ALT 15 (14-59) U/L Alkaline Phosphatase 120 H (46-116) U/L Total Protein 6.6 (6.4-8.2) g/dL Albumin 2.1 L (3.4-5.0) g/dL COVID-19 Source Pending Cancelled SARS-CoV-2 (PCR) Pending Cancelled Influenza Type A (PCR) Pending Cancelled Influenza Type B (PCR) Pending Cancelled RSV (PCR) Pending Cancelled 06/13/24 Range/Units 06:00 WBC 13.60 H (4.4-10.8) 10^3/uL RBC 2.82 L (3.93-5.22) 10^6/uL Hgb 9.0 L (11.2-15.7) g/dL Hct 27.8 L (36.0-46.0) % MCV 99 H (80-95) fL MCH 31.9 (27.0-33.0) pg MCHC 32.4 (32.0-36.0) % RDW 13.2 (11.7-14.6) % Plt Count 499 H (130-400) 10^3/uL MPV 9.1 (8.0-11.0) fL VBG Lactate (0.6-1.4) mmol/L Sodium (136-145) mmol/L Potassium (3.5-5.1) mmol/L Chloride (98-107) mmol/L Carbon Dioxide (21.0-32.0) mmol/L Anion Gap (3-11) mmol/L BUN (7-18) mg/dL Creatinine (0.55-1.02) mg/dL Est GFR (CKD-EPI 2020) (mL/min/1.73m2) Glucose (74-106) mg/dL Calcium (8.5-10.1) mg/dL Total Bilirubin (0.2-1.0) mg/dL AST (15-37) U/L ALT (14-59) U/L Alkaline Phosphatase (46-116) U/L Total Protein (6.4-8.2) g/dL Albumin (3.4-5.0) g/dL COVID-19 Source SARS-CoV-2 (PCR) Influenza Type A (PCR) Influenza Type B (PCR) RSV (PCR) 06/12/24 20:55 Blood Culture - Preliminary Blood NO GROWTH 24 HOURS 06/12/24 20:55 Blood Culture - Preliminary Blood NO GROWTH 24 HOURS 06/13/24 20:44 Blood Culture - Pending Blood 06/13/24 20:32 Blood Culture - Pending Blood Intake and Output - 24 Hour Total 06/12/24 16:39 thru 06/13/24 23:16 Intake Total 910 Output Total 700 Balance 210 Weight 90.265 kg Intake: IV 360 Oral 550 Output: Urine 500 Stool 200 Other: Urine Appearance Clear Stool Size Small Stool Characteristics Liquid Falls Risk Assessment History of Falls No History 06/13/24 15:05 Contributing Factors No Factors 06/13/24 15:05 Ambulatory Aids Independent 06/13/24 15:05 Tubes/Lines None 06/13/24 15:05 Gait Evaluation No gait disturbance 06/13/24 15:05 Cognition No cognitive impairment 06/13/24 15:05 Fall Total Score 0 06/13/24 15:05 Level of Risk Standard/Low Risk 06/13/24 15:05 Problems (Last Reviewed 06/12/24 @ 21:18 by Xuan La MD) Diarrhea (Acute) Hypokalemia (Acute) Fever (Acute) Intra-abdominal abscess (Acute) Left lower quadrant pain (Acute) Status post primary low transverse section (Acute) v v v v v v v v v Sending and/or Receiving Nurses: Please use comment section below to note any information pertinent to the patient hand-off not included above. Information / Comments: Report received from: Nery KILPATRICK from OB
[2024-06-14] MEDS: DEXTROSE 5%-0.9% SALINE 1,000 ML 150 ML IV (00:35)
[2024-06-14] MEDS: Normal Saline Flush 10 ML SYR IVP ×2 (00:35→08:10)
[2024-06-14] MEDS: POTASSIUM CHLORIDE 10 MEQ/100 ML BAG 100 MEQ IV_INF ×2 (00:35→01:55)
[2024-06-14 01:00] LABS: COVID-19 PCR Negative (Negative); Influenza A PCR Negative (Negative); Influenza B PCR Negative (Negative); RSV PCR Negative (Negative)
[2024-06-14 01:01] LABS: Source Nasopharynx
[2024-06-14] MEDS: Acetaminophen 500 MG TAB 1000 MG PO ×2 (01:48→07:43)
[2024-06-14] MEDS: PIPERACILLIN/TAZO 4.5 GM in Normal Saline 100 ML IVPB (03:16)
[2024-06-14 07:03] LABS: Abs Immature Grans 0.21 10^3/uL (0.0-0.06); Absolute Eosinophil Count 0.02 10^3/uL (0.0-0.7); Absolute Monocyte Count 0.51 10^3/uL (0.1-0.8); Basophils % 0.2 %; Eosinophils % 0.1 %; HGB 8.6 g/dL (11.2-15.7); Immature Grans % 1.2 %; Lymphocytes % 8.4 %; MCH 32.5 pg (27.0-33.0); MCHC 33.1 % (32.0-36.0); MCV 98 fL (80-95); MPV 9.1 fL (8.0-11.0); Neutrophils % 87.1 %; Platelet Count 519 10^3/uL (130-400); RBC 2.65 10^6/uL (3.93-5.22); RDW 13.4 % (11.7-14.6); RDW-SD 48.1 fL; WBC 17.11 10^3/uL (4.4-10.8)
[2024-06-14 07:10] LABS: Absolute Basophil Count 0.03 10^3/uL (0.0-0.2); Absolute Lymphocyte Count 1.44 10^3/uL (1.2-3.4)
[2024-06-14 07:14] LABS: Anion Gap 11.5 mmol/L (3-11); BUN 5 mg/dL (7-18); CO2 25.5 mmol/L (21.0-32.0); Calcium 8.4 mg/dL (8.5-10.1); Chloride 106 mmol/L (98-107); Estimated GFR 75.34 (mL/min/1.73m2); Glucose 117 mg/dL (74-106); Magnesium 1.7 mg/dL (1.8-2.4); Sodium 143 mmol/L (136-145)
[2024-06-14 07:16] LABS: Potassium 2.9 mmol/L (3.5-5.1)
[2024-06-14] MEDS: Potassium Chloride 20 MEQ TABCR PO (07:42)
[2024-06-14] MEDS: Loperamide 2 MG CAP PO (07:42)
[2024-06-14] MEDS: Prenatal Multivitamin w/CA,FE TAB 1 TAB PO (07:42)
[2024-06-14] MEDS: POTASSIUM CHLORIDE/D5-0.9%NACL 1,000 ML 150 MEQ IV (07:58)
[2024-06-14] MEDS: Metoclopramide 10 MG/2 ML VIAL IVP (08:04)
[2024-06-14] MEDS: VANCOMYCIN/WATER (PEG) 1 GM/200 ML BAG IVPB (10:05)
--- NOTE | 2024-06-14 10:09 | PGE_ITS ---
Date of Service Date of service: 06/14/24 Time of Service: 10:09 Assessment and Plan Assessment and plan (1) Status post primary low transverse section: Status: Acute Assessment and plan: POD#13 s/p PCS for arrest of labor, cat 2 FHT with thick meconium at delivery though did well. No e/o maternal infection. EBL 1L. There was persistent oozing that was difficult to identify the exact source though seemed to be coming from the left side of the uterine incision. This seemed to improve s/p extra suture placement. Routine post-op course until about 1wk ago. (2) Intra-abdominal abscess: Status: Acute Assessment and plan: 9x15cm pelvic fluid collection in the left pericolic gutter. Plan for IR drainage. Started on Zosyn evening of 06/12. (3) Sepsis: Status: Acute Assessment and plan: Persistent fever and tachycardia began evening of 06/13 despite abx and tylenol. Arranged for transport to [facility] for higher level of care. Accepted to [facility] service, Dr. Charlton. Scrap Drop Operator also consulted and aware of pt in case the need for transfer to the ICU arises. Added Vancomycin 1g for pt to start prior to transfer. Most recent temperature down to normal just before transfer. Subjective Subjective Interval history since last seen: Pt feels a bit better this am though still feel very warm and tired. She has had minor nausea but has been on clear liquids since yesterday afternoon. Her diarrhea has improved some. Her pain is mild, not as bad as yesterday afternoon. She stopped trying to breast feed her daughter last evening because the baby started vomiting. After talking with the cotton weigher operator they decided to do f ormula for a bit while she is on the abx. She has not pumped overnight but is not feeling uncomfortable. She does have a pump available to use. Exam Narrative Exam Narrative: Pt appears well overall. Const General: cooperative HENMT Head: normocephalic and atraumatic Ears: hearing grossly normal bilaterally Resp Effort & Inspection: normal respiratory effort and able to speak in complete sentences GI Other: Steristrips removed from her incision and it appears well healed. Mild-mod lower abdominal tenderness to palpation. Neuro General: patient alert and patient awake Psych Appearance: grossly normal Mental Status: mental status grossly normal Speech and Movement: speech and movement normal Affect: normal affect Attitude: cooperative Thought Process: normal Thought Content: normal Objective Last Vital Signs Temp 101.1 F H 06/14/24 09:04 Pulse 108 H 06/14/24 08:01 Resp 21 06/14/24 08:01 BP 109/50 L 06/14/24 08:01 Pulse Ox 96 06/14/24 08:01 Laboratory Results - last 24 hr 06/13/24 06/13/24 06/14/24 22:30 23:30 00:18 WBC 16.57 H RBC 2.76 L Hgb 8.7 L Hct 26.7 L MCV 97 H MCH 31.5 MCHC 32.6 RDW 13.2 Plt Count 500 H MPV 9.0 Immature Gran % Neutrophils % Lymphocytes % Monocytes % Eosinophils % Basophils % Nucleated RBC % Absolute Neutrophils Absolute Lymphocytes Absolute Monocytes Absolute Eosinophils Absolute Basophils VBG Lactate 0.7 Sodium 143 Potassium 2.6 L* Chloride 107 Carbon Dioxide 22.6 Anion Gap 13.4 H BUN 6 L Creatinine 1.1 H Est GFR (CKD-EPI 2020) 67.20 Glucose 116 H Calcium 8.5 Magnesium Total Bilirubin 0.38 AST 16 ALT 15 Alkaline Phosphatase 120 H Total Protein 6.6 Albumin 2.1 L COVID-19 Source Cancelled Nasopharynx SARS-CoV-2 (PCR) Cancelled Negative Influenza Type A (PCR) Cancelled Negative Influenza Type B (PCR) Cancelled Negative RSV (PCR) Cancelled Negative 06/14/24 06:46 WBC 17.11 H RBC 2.65 L Hgb 8.6 L Hct 26.0 L MCV 98 H MCH 32.5 MCHC 33.1 RDW 13.4 Plt Count 519 H MPV 9.1 Immature Gran % 1.2 Neutrophils % 87.1 Lymphocytes % 8.4 Monocytes % 3.0 Eosinophils % 0.1 Basophils % 0.2 Nucleated RBC % 0.0 Absolute Neutrophils 14.90 H Absolute Lymphocytes 1.44 Absolute Monocytes 0.51 Absolute Eosinophils 0.02 Absolute Basophils 0.03 VBG Lactate Sodium 143 Potassium 2.9 L* Chloride 106 Carbon Dioxide 25.5 Anion Gap 11.5 H BUN 5 L Creatinine 1.0 Est GFR (CKD-EPI 2020) 75.34 Glucose 117 H Calcium 8.4 L Magnesium 1.7 L Total Bilirubin AST ALT Alkaline Phosphatase Total Protein Albumin COVID-19 Source SARS-CoV-2 (PCR) Influenza Type A (PCR) Influenza Type B (PCR) RSV (PCR) Time Spent with Patient Time Spent with Patient: 35-49 minutes Time was spent: preparing to see the patient(eg.review tests), obtaining and/or reviewing separately otained hiistory, referring, communicating with other health medical care evaluation specialist, counseling the patient and care coordination
--- NOTE | 2024-06-14 11:17 | NUR.NOTE ---
Nursing Note:Piperacillin-Tazobactam not administered to patient due to incompatibility with vancomycin; patient would require a second IV started in order to administer w/ vancomycin simultaneously. Relayed to UVCarol Clemente RN that piperacillin-tazobactam was not administered as of yet.
--- NOTE | 2024-06-14 11:57 | PDOC.CMPRO ---
Date of service: 06/14/24 Time of Service: 11:57 Care Management Progress Note Progress Note Text Progress Note Text: Saira was transferred to [facility] prior to CM meeting with her. SDOH(Care Management) Screening Will the Patient Participate in the Screening?: Declined to provide
--- NOTE | 2024-06-14 12:21 | W.NUTRFU ---
Date of service: 06/14/24 Time of Service: 12:21 Nutrition Note NOTE: Pt admitted with sepsis due to intra-abdominal abscess from complication of recent . Pt reportedly with improving diarrhea - magnesium slightly low today Potassium significantly low and repleated with daily dosing to continue. Weight loss noted but mostly due to delivery of baby - stable over the last few days. Tolerating clear liquids per record. Pt currently at low nutrition risk as long as diet advances routinely and is tolerated. Will monitor weight, diet advancement/toleration, labs. Time Spent in Nutritional Counseling and Treatment: 0
== END 2024-06-14 10:21 | disposition short-term general hospital (02) | DRG 776 ==
LOC: ER 20:03 → OBS 21:40 → ICU 06-13 23:54
PROVIDERS: Admitting Provider Obstetrics & Gynecology Gynecology; Emergency Provider Emergency Medicine; Visit Provider Obstetrics & Gynecology Gynecology
DX: A41.9 Sepsis, unspecified organism; K65.1 Peritoneal abscess; N13.30 Unspecified hydronephrosis; R50.81 Fever presenting with conditions classified elsewhere; O86.04 Sepsis following an obstetrical procedure; K59.1 Functional diarrhea; E87.6 Hypokalemia; O99.893 Other specified diseases and conditions complicating puerperium; E83.42 Hypomagnesemia; N85.8 Other specified noninflammatory disorders of uterus; O99.63 Diseases of the digestive system complicating the puerperium; D25.9 Leiomyoma of uterus, unspecified
CPT/HCPCS: 00123; 36415; 80048; 80053; 83690; 85027; 86850; 86900; 86901; 87040; 87637; 96365; 99285; 74178; 81003; 81015; 83605; 83735; 85025; G0378; J1885; J2543; J2765; J3372; J3480; J3490; J7042

== ENCOUNTER 2024-07-17 03:56 | Outpatient (CLI) | payer OTHER, SELFPAY ==
[2024-07-17 16:26] LABS: Estimated GFR 75.34 (mL/min/1.73m2)
== END 2024-07-17 03:57 | disposition home or self-care (01) ==
LOC: LBO 03:57
PROVIDERS: Visit Provider Internal Medicine Infectious Disease
DX: K55.1 Chronic vascular disorders of intestine (principal)
CPT/HCPCS: 36415; 82565